=== PATIENT | female | born 1955 | race Caucasian/White ===

== ENCOUNTER → 2017-10-09 10:03 | Outpatient (CLI) | payer OTHER, SELFPAY ==
[2017-10-09 12:51] LABS: Absolute Lymphocyte Count 1.15 X10^3/ul (0.83-4.51); Basophil# 0.02 X10^3/uL; Basophil% 0.4 % (0-1); Eosinophil# 0.09 X10^3/uL; Eosinophils% 1.9 % (0-5); Hematocrit 38.5 % (37-47); Lymphocyte # 1.15 X10^3/ul (4.0); Lymphocyte % 24.6 % (19-41); Mean Corp Hgb Conc 33.8 g/gl (32-36); Mean Corpuscular Hgb 32.1 pg (27.0-32.0); Mean Corpuscular Volume 95.1 fL (81-99); Mean Platelet Vol. 10.9 fl (6.2-12.0); Monocyte# 0.46 X10^3/uL; Monocyte% 9.8 % (0-10); Neutrophil # 2.96 X10^3/uL (2.7-7.7); Neutrophil % 63.3 % (47-70); Platelet Count 263 K/mm3 (150-450); RBC Distribution Width CV 12.2 % (11.6-14.6); RBC Distribution Width SD 41.6 fl (35.1-43.9); Red Blood Count 4.05 M/mm3 (4.2-5.4); White Blood Count 4.7 K/mm3 (4.4-11.0)
[2017-10-09 12:56] LABS: POSITIVE COUNT NO; POSITIVE DIFFERENTIAL NO; POSITIVE MORPHOLOGY NO
[2017-10-09 13:03] LABS: ALB/GLOB Ratio 1.3 RATIO (0.9-2.4); AST(SGOT) 21 U/L (15-37); Alanine Aminotransfer ALT/SGPT 35 U/L (13-56); Albumin, Serum 4.1 g/dL (3.2-5.0); Alkaline Phosphatase 54 U/L (45-117); Anion Gap 6 (5-15); BUN 11 mg/dL (7-18); BUN/Creat Ratio 16.5 RATIO (10-20); Calcium,Total 9.3 mg/dL (8.5-10.1); Chloride 103 mmol/L (98-107); Creatinine, Serum 0.67 mg/dL (0.55-1.02); EST Glomerular Filtration Rate 95 mL/min (>60); Est Glom Filt Rate - Afr Amer 115 mL/min (>60); Globulin 3.2 g/dL (2.2-4.2); Glucose 77 mg/dL (74-106); Potassium 3.9 mmol/L (3.5-5.1); Protein, Total 7.3 g/dL (6.4-8.2); Sodium Level 140 mmol/L (136-145)
== END ==
PROVIDERS: Family Provider Family Medicine; PCP Family Medicine; Visit Provider Family Medicine
DX: Z00.00 Encounter for general adult medical examination without abnormal findings (principal)
CPT/HCPCS: 36415; 80053; 85025

== ENCOUNTER → 2018-06-10 08:21 | Outpatient (CLI) | payer OTHER, SELFPAY ==
--- NOTE | 2018-06-10 08:25 | BI_ITS ---
MAMMOGRAPHY - BILATERAL SCREENING REASON FOR EXAM: Female, 62 years old. Routine annual screening examination. PERTINENT HISTORY: Mother with breast cancer. TECHNIQUE: Digital bilateral breast narciso (3D mammographic acquisition) in the CC and MLO projections. 2-D mediolateral oblique (MLO) and craniocaudad (CC) views of both breasts were obtained. CAD: Full Field Digital Mammography with Computer Added Detection was performed. COMPARISON: Comparison is made with prior outside examination dated June 09, 2017. FINDINGS: Breast Composition: The breasts are extremely dense, which lowers the sensitivity of mammography. There are no dominant masses or suspicious calcifications. No other significant abnormalities are identified. There has been no significant change since the prior study. BI/SCREENING MAMM (CAD), BILAT IMPRESSION: Stable bilateral screening mammogram. Yearly follow-up mammogram recommended. (A) ASSESSMENT CATEGORY: BIRADS Category 1: Negative. A letter regarding these results will be sent to the patient by the facility within 30 days. Approximately 10% of breast cancers are not detected by mammography. A normal mammogram should not delay biopsy of a clinically suspicious abnormality. [id number] Electronically Signed: Karl Campoverde MD at 9:31 EDT Tel [phone], Service support ,
== END ==
PROVIDERS: Family Provider Family Medicine; PCP Family Medicine
DX: Z12.31 Encounter for screening mammogram for malignant neoplasm of breast (principal)
CPT/HCPCS: 77063; 77067

== ENCOUNTER → 2019-06-08 14:26 | Outpatient (CLI) | payer OTHER, SELFPAY ==
[2018-07-10 10:30] VITALS: BMI 19.5
--- NOTE | 2019-06-08 14:33 | BI_ITS ---
MAMMOGRAPHY - BILATERAL SCREENING REASON FOR EXAM: Female, 63 years old. Routine annual screening examination. PERTINENT HISTORY: Mother with breast cancer. TECHNIQUE: Digital bilateral breast lorie (3D mammographic acquisition) in the CC and MLO projections. 2-D mediolateral oblique (MLO) and craniocaudad (CC) views of both breasts were obtained. CAD: Full Field Digital Mammography with Computer Added Detection was performed. COMPARISON: Comparison is made with prior examination in June 10, 2018. FINDINGS: Breast Composition: The breasts are extremely dense, which lowers the sensitivity of mammography. There are no dominant masses or suspicious calcifications. No other significant abnormalities are identified. There has been no significant change since the prior study. BI/SCREEN MAMM (CAD) W/LORIE BILAT IMPRESSION: Stable bilateral screening mammogram. Yearly follow-up mammogram recommended. (A) ASSESSMENT CATEGORY: BIRADS Category 1: Negative. A letter regarding these results will be sent to the patient by the facility within 30 days. Approximately 10% of breast cancers are not detected by mammography. A normal mammogram should not delay biopsy of a clinically suspicious abnormality. [id number] Electronically Signed: Karl Campoverde, at 15:18 EDT , Service support ,
== END ==
PROVIDERS: Family Provider Family Medicine; PCP Family Medicine; Referring Provider Obstetrics & Gynecology; Visit Provider Obstetrics & Gynecology
DX: Z12.31 Encounter for screening mammogram for malignant neoplasm of breast (principal)
CPT/HCPCS: 77063; 77067

== ENCOUNTER → 2020-06-22 08:27 | Outpatient (CLI) | payer SELFPAY ==
[2018-07-10 10:30] VITALS: BMI 19.5
--- NOTE | 2020-06-22 08:33 | BI_ITS ---
MAMMOGRAPHY - BILATERAL SCREENING REASON FOR EXAM: Female, 64 years old. Routine annual screening examination. PERTINENT HISTORY: Mother with breast cancer. TECHNIQUE: Digital bilateral breast lorie (3D mammographic acquisition) in the CC and MLO projections. 2-D mediolateral oblique (MLO) and craniocaudad (CC) views of both breasts were obtained. CAD: Full Field Digital Mammography with Computer Added Detection was performed. COMPARISON: Comparison is made with prior study dated 06/08/2019 and 06/10/2018. FINDINGS: Breast Composition: The breasts are extremely dense, which lowers the sensitivity of mammography. There are no dominant masses or suspicious calcifications. No other significant abnormalities are identified. There has been no significant change since the prior study. BI/SCREEN MAMM (CAD) W/LORIE BILAT IMPRESSION: Stable bilateral screening mammogram. Yearly follow-up mammogram recommended. (A) ASSESSMENT CATEGORY: BIRADS Category 1: Negative. A letter regarding these results will be sent to the patient by the facility within 30 days. Approximately 10% of breast cancers are not detected by mammography. A normal mammogram should not delay biopsy of a clinically suspicious abnormality. [id number] Electronically Signed: Karl Campoverde, at 9:33 EST , Service support ,
== END ==
PROVIDERS: PCP Family Medicine; Referring Provider Obstetrics & Gynecology; Visit Provider Obstetrics & Gynecology
DX: Z12.31 Encounter for screening mammogram for malignant neoplasm of breast (principal); Z80.3 Family history of malignant neoplasm of breast
CPT/HCPCS: 77063; 77067

== ENCOUNTER → 2021-06-25 11:39 | Outpatient (CLI) | payer OTHER, SELFPAY ==
--- NOTE | 2021-06-25 11:43 | BI_ITS ---
MAMMOGRAPHY - BILATERAL SCREENING REASON FOR EXAM: Female, 65 years old. Routine annual screening examination. PERTINENT HISTORY: Mother with breast cancer. TECHNIQUE: Digital bilateral breast lorie (3D mammographic acquisition) in the CC and MLO projections. 2-D mediolateral oblique (MLO) and craniocaudad (CC) views of both breasts were obtained. CAD: Full Field Digital Mammography with Computer Added Detection was performed. COMPARISON: Comparison is made with prior examination dated 06/22/2020 and 06/08/2019. FINDINGS: Breast Composition: The breasts are extremely dense, which lowers the sensitivity of mammography. There are no dominant masses or suspicious calcifications. No other significant abnormalities are identified. There has been no significant change since the prior study. BI/SCRN MAMM (CAD)W/LORIE BILAT IMPRESSION: Stable bilateral screening mammogram. Yearly follow-up mammogram recommended. (A) ASSESSMENT CATEGORY: BIRADS Category 1: Negative. A letter regarding these results will be sent to the patient by the facility within 30 days. Approximately 10% of breast cancers are not detected by mammography. A normal mammogram should not delay biopsy of a clinically suspicious abnormality. [id number] Electronically Signed: Karl Campoverde MD at 12:28 EST , Service support ,
== END ==
PROVIDERS: PCP Family Medicine; Referring Provider Obstetrics & Gynecology; Visit Provider Obstetrics & Gynecology
DX: Z12.31 Encounter for screening mammogram for malignant neoplasm of breast (principal); Z80.3 Family history of malignant neoplasm of breast
CPT/HCPCS: 77063; 77067

== ENCOUNTER → 2022-06-28 | Outpatient (CLI) | payer MEDICARE, OTHER, SELFPAY ==
--- NOTE | 2022-06-28 08:35 | BI_ITS ---
MAMMOGRAPHY - BILATERAL SCREENING REASON FOR EXAM: Female, 66 years old. Routine annual screening examination. PERTINENT HISTORY: Mother with breast cancer. TECHNIQUE: Digital bilateral breast lorie (3D mammographic acquisition) in the CC and MLO projections. 2-D mediolateral oblique (MLO) and craniocaudad (CC) views of both breasts were obtained. CAD: Full Field Digital Mammography with Computer Added Detection was performed. COMPARISON: Comparison is made with prior study dated 06/25/2021 and 06/22/2020. FINDINGS: Breast Composition: The breasts are extremely dense, which lowers the sensitivity of mammography. There are no dominant masses or suspicious calcifications. No other significant abnormalities are identified. There has been no significant change since the prior study. BI/SCRN MAMM (CAD)W/LORIE BILAT IMPRESSION: Stable bilateral screening mammogram. Yearly follow-up mammogram recommended. (A) ASSESSMENT CATEGORY: BIRADS Category 1: Negative. A letter regarding these results will be sent to the patient by the facility within 30 days. Approximately 10% of breast cancers are not detected by mammography. A normal mammogram should not delay biopsy of a clinically suspicious abnormality. [id number] Electronically Signed: Karl Campoverde MD at 9:28 EST ,
== END | disposition home or self-care (01) ==
PROVIDERS: PCP Family Medicine; Referring Provider Obstetrics & Gynecology; Visit Provider Obstetrics & Gynecology
DX: Z12.31 Encounter for screening mammogram for malignant neoplasm of breast (principal); Z80.3 Family history of malignant neoplasm of breast
CPT/HCPCS: 77063; 77067

== ENCOUNTER → 2023-08-01 | Outpatient (CLI) | payer MEDICARE, OTHER, SELFPAY ==
--- NOTE | 2023-08-01 13:21 | BI_ITS ---
MAMMOGRAPHY - BILATERAL SCREENING REASON FOR EXAM: Female, 67 years old. Routine annual screening examination. PERTINENT HISTORY: Mother with breast cancer. TECHNIQUE: Digital bilateral breast lorie (3D mammographic acquisition) in the CC and MLO projections. 2-D mediolateral oblique (MLO) and craniocaudad (CC) views of both breasts were obtained. CAD: Full Field Digital Mammography with Computer Added Detection was performed. COMPARISON: Comparison is made with prior study June 28, 2022 and June 25, 2021. FINDINGS: Breast Composition: The breasts are extremely dense, which lowers the sensitivity of mammography. There are no dominant masses or suspicious calcifications. No other significant abnormalities are identified. There has been no significant change since the prior study. BI/SCRN MAMM (CAD)W/LORIE BILAT IMPRESSION: Stable bilateral screening mammogram. Yearly follow-up mammogram recommended. (A) ASSESSMENT CATEGORY: BIRADS Category 1: Negative. A letter regarding these results will be sent to the patient by the facility within 30 days. Approximately 10% of breast cancers are not detected by mammography. A normal mammogram should not delay biopsy of a clinically suspicious abnormality. [id number] Electronically Signed: Karl Campoverde MD at 14:38 EST ,
== END | disposition home or self-care (01) ==
PROVIDERS: PCP Family Medicine; Referring Provider Family Medicine; Visit Provider Family Medicine
DX: Z12.31 Encounter for screening mammogram for malignant neoplasm of breast (principal); Z80.3 Family history of malignant neoplasm of breast
CPT/HCPCS: 77063; 77067

== ENCOUNTER → 2024-08-03 | Outpatient (CLI) | payer MEDICARE, OTHER, SELFPAY ==
--- NOTE | 2024-08-03 10:38 | BI_ITS ---
MAMMOGRAPHY - BILATERAL SCREENING REASON FOR EXAM: Female, 68 years old. Routine annual screening examination. PERTINENT HISTORY: Mother with breast cancer. TECHNIQUE: Digital bilateral breast lorie (3D mammographic acquisition) in the CC and MLO projections. 2-D mediolateral oblique (MLO) and craniocaudad (CC) views of both breasts were obtained. CAD: Full Field Digital Mammography with Computer Added Detection was performed. COMPARISON: Comparison is made with prior study dated August 01, 2023. FINDINGS: Breast Composition: The breasts are extremely dense, which lowers the sensitivity of mammography. There are no dominant masses or suspicious calcifications. Stable bilateral fat containing axillary lymph nodes. No other significant abnormalities are identified. There has been no significant change since the prior study. BI/SCRN MAMM (CAD)W/LORIE BILAT IMPRESSION: Stable bilateral screening mammogram. Yearly follow-up mammogram recommended. (A) ASSESSMENT CATEGORY: BIRADS Category 2: Benign. A letter regarding these results will be sent to the patient by the facility within 30 days. Approximately 10% of breast cancers are not detected by mammography. A normal mammogram should not delay biopsy of a clinically suspicious abnormality. [id number] Electronically Signed: Karl Campoverde MD at 11:45 EST ,
== END | disposition home or self-care (01) ==
LOC: OPBI 10:26
PROVIDERS: PCP Family Medicine; Referring Provider Physician Assistant; Visit Provider Physician Assistant
DX: Z12.31 Encounter for screening mammogram for malignant neoplasm of breast (principal); Z80.3 Family history of malignant neoplasm of breast
CPT/HCPCS: 77063; 77067

== ENCOUNTER → 2025-08-17 | Outpatient (CLI) | payer MEDICARE, OTHER, SELFPAY ==
--- NOTE | 2025-08-17 07:55 | BI_ITS ---
EXAM: SCRN MAMM (CAD)W/LORIE BILAT DATE: 08/17/2025 CLINICAL HISTORY: F, Age 69 y/o , SCREENING TECHNIQUE: Procedure Code: [id number] Modality: MG Procedure: SCRN MAMM (CAD)W/LORIE BILAT COMPARISON: Prior exam(s) were compared. FINDINGS: TISSUE DENSITY: The breasts are heterogeneously dense, which may obscure small masses. Bilateral Breast Mammographic Findings: No significant masses, calcifications or other abnormalities are identified. BI/SCRN MAMM (CAD)W/LORIE BILAT IMPRESSION: No mammographic evidence of malignancy. OVERALL FINAL ASSESSMENT BI-RADS 1: NEGATIVE. RECOMMENDATION: Routine annual follow-up in 1 Year Additional Recommendation none A letter with findings and recommendations will be mailed to the patient. Reading Location: [id number]
--- OUTSIDE RECORDS SUMMARY | 2025-08-17 07:57 | XMS RPT_ITS | CCD ---
Author Organization [facility] Care Team Providers Care Clinical Research Associate Name Role Phone Damon Logan Primary Care Provider Damon Logan Primary Care Unavailable Jefry Pak Referring Unavailable Jefry Pak Attending Unavailable Damon Logan DO Primary Care Provider Unavailable Primary Care Provider UnavailShawna Cobian DO Primary Care Provider SHAWNA KENNEY Referring Unavailable SHAWNA KENNEY Attending Unavailable EDGAR MCNULTY Referring Unavailable EDGAR MCNULTY Attending Unavailable [facility] Primary Care Unavailable BENA, DAMON Primary Care Unavailable EDGAR MCNULTY Attending Unavailable CHERYL, SOFI Referring Unavailable PETRILLA, DAMON Primary Care Unavailable EDGAR MCNULTY Referring Unavailable SANTIAGO, NIKA Referring Unavailable PETRILLA, DAMON Primary Care Unavailable RADHA BOTELLO Attending Unavailable CATALINA SUGGS Attending Unavailable RADHA BOTELLO Referring Unavailable Allergies Allergy Classification Reported Allergen(s) Allergy Type Date of Onset Reaction(s) Facility Macrolides (antibiotic) (2 sources) Clarithromycin Drug Allergy 5 Other (See Comments) [facility] Clarithromycin; Translations: [CLARITHROMYCIN] Drug Allergy 5 Other (See Comments) [facility] Work Phone: (20 sources) Clarithromycin Allergy to substance 5 [facility] Medications Current Medications Medication Drug Class(es) Dates Sig (Normalized) Sig (Original) ALPRAZolam 0.5 mg oral tablet (18 sources) Benzodiazepine Start: 02-22-2025 take 1 tablet by mouth once daily as needed for sleep ALPRAZolam (Xanax) 0.5 MG tablet Indications: Insomnia, unspecified type , Anxiety Take 1 tablet (0.5 mg) by mouth Nightly as needed for sleep (use nightly as needed for sleep) for up to 15 doses. 15 tablet 02/22/2025 Active Start: 12-10-2023 End: 08-31-2024 take 1 tablet by mouth once daily as needed for sleep ALPRAZolam (Xanax) 0.5 MG tablet Indications: Insomnia, unspecified type , Anxiety Take 1 tablet (0.5 mg) by mouth Nightly as needed for sleep (use nightly as needed for sleep). 30 tablet 2 06/02/2024 08/31/2024 Active aspirin 325 mg delayed release oral tablet (2 sources) Platelet Aggregation Inhibitor, Nonsteroidal Anti-inflammatory Drug Start: 01-08-2021 aspirin 325 MG EC tablet Take 1 tablet by mouth 2 times daily Take 2 times a day with food for 30 days. This is for blood clot prevention. 60 tablet 0 01/08/2021 Active azithromycin 250 mg oral tablet (2 sources) Macrolide Antimicrobial Start: 07-10-2018 Azithromycin Active 0 PO .COMPLEX July 10, 2018 12:00am take 500 mg today (day 1), then 250 mg for 4 days (days 2-5) PO celecoxib 200 mg oral capsule (2 sources) Nonsteroidal Anti-inflammatory Drug Start: 01-08-2021 celecoxib (CELEBREX) 200 MG capsule Take 1 capsule by mouth 2 times daily Take 2 times a day as needed for pain. 60 capsule 1 01/08/2021 Active cholecalciferol 0.05 mg oral capsule (20 sources) Vitamin D take 1 capsule by mouth once daily cholecalciferol (Vitamin D-3) 50 MCG (2000 UT) capsule Take 2,000 Units by mouth daily. Active docusate sodium 50 mg oral capsule (2 sources) Start: 01-08-2021 take 2 capsules by mouth twice daily as needed for pain docusate sodium (COLACE) 50 MG capsule Take 2 capsules by mouth 2 times daily 2x daily as needed for constipation while on pain meds 60 capsule 0 01/08/2021 Active escitalopram 5 mg oral tablet (11 sources) Serotonin Reuptake Inhibitor Start: 06-02-2024 End: 08-31-2024 take 1 tablet by mouth once daily escitalopram (Lexapro) 5 MG tablet Indications: Anxiety Take 1 tablet (5 mg) by mouth daily. 30 tablet 2 06/02/2024 Active grape seed extract 100 mg oral capsule (3 sources) take 2 capsules by mouth once daily in the morning Grape Seed Extract 100 MG CAPS Take 200 mg by mouth every morning 0 Active Lecithin (4 sources) take 1 capsule by mouth once daily LECITHIN PO Take 1 capsule by mouth daily 1200MG 0 Active take 1 capsule by mouth once suyapa ly LECITHIN PO Take 1 capsule by mouth daily 0 Active magnesium citrate 58.2 mg/ml oral solution (13 sources) magnesium citrat e solution Take by mouth. Active 24 hr metoprolol succinate 25 mg extended release oral capsule (2 sources) beta-Adrenergic Salazar Start: 07-10-20 18 take 25 mg by mouth once daily Metoprolol Succinate Active 25 MG PO DAILY July 10, 2018 12:00am niacin 500 mg extended release oral capsule (3 sources) Nicotinic Acid take 1 capsule by mouth once daily niacin 500 MG extended release capsule Take 500 mg by mouth nightly 0 Active polyethylene glycol 3350 69056 mg powder for oral solution (2 sources) Osmotic Laxative Start: 01-09-20 21 take 1 dose by mouth once daily as needed for constipation polyethylene glycol (MIRALAX) 17 g packet Take 17 g by mouth daily as needed for Constipation Take one packet a day as needed for constipation 14 each 0 01/08/2021 Active Probiotic Product (PROBIOTIC ADVANCED) CAPS (1 source) take 1 capsule by mouth once daily Probiotic Product (PROBIOTIC ADVANCED) CAPS Take 1 capsule by mouth daily 0 Active soybean lecithin 1200 mg oral capsule (20 sources) take 1 capsule by mouth once daily Lecithin 1200 MG capsule Take 1,200 mg by mouth daily. Active Specialty Vitamins Products (HAIR NOURISHING SUPPLEMENT PO) (4 sources) take 1 tablet by mouth once daily Specialty Vitamins Products (HAIR NOURISHING SUPPLEMENT PO) Indications: viviscal Take 1 tablet by mouth daily Indications: viviscal VIVISCAL MARINE COMPLEX 0 Active take 1 tablet by mouth once janie y Specialty Vitamins Products (HAIR NOURISHING SUPPLEMENT PO) Indications: viviscal Take 1 tablet by mouth daily 0 Active Turmeric extract (20 sources) Turmeric 400 MG capsule Take by mouth. Active Turmeric 400 MG capsule Take by mouth. 0 Active Turmeric 400 MG CAPS Take by mouth 0 Active End: 01-01-2021 take 1 tablet by mouth once daily TURMERIC PO Take 1 tablet by mouth daily 0 01/01/2021 Discontinued (LIST CLEANUP) take 1 tablet by al th once daily TURMERIC PO Take 1 tablet by mouth daily 0 Active Completed/Discontinued Medications Medication Drug Class(es) Dates Sig (Normalized) Sig (Original) amoxicillin 500 mg oral capsule (8 sources) Penicillin-class Antibacterial Start: 11-21-2023 End: 12-10-2023 amoxicillin (Amoxil) 500 MG capsule Take 500 mg by mouth in the morning and 500 mg at noon and 500 mg before bedtime. 0 11/21/2023 12/10/2023 Discontinued (Therapy completed) Start: 11-21-2023 End: 11-21-2023 amoxicillin (Amoxil) 500 MG capsule Indications: Status post hip replacement Take 4 capsules (2,000 mg) by mouth Once for 1 dose. Take all 4 pills 1 hour before dental procedure 4 capsule 0 11/21/2023 11/21/2023 Active Start: 09-27-2022 End: 09-27-2022 amoxicillin (Amoxil) 500 MG capsule Indications: Status post hip replacement Take 4 capsules (2,000 mg) by mouth Once for 1 dose. Take all 4 pills 1 hour before dental procedure 4 capsule 0 09/27/2022 09/27/2022 benzonatate 100 mg oral capsule (2 sources) Non-narcotic Antitussive Start: 07-06-2018 End: 01-01-2021 benzonatate (TESSALON PERLES) 100 MG capsule 1-2 qid prn , no more than 6 a day 60 capsule 1 07/06/2018 01/01/2021 Discontinued (LIST CLEANUP) bifidobacterium animalis [id number] unt / lactobacillus acidophilus [id number] unt oral capsule (1 source) End: 01-01-2021 take 1 capsule by mouth once daily Probiotic Product (PROBIOTIC ADVANCED) CAPS Take 1 capsule by mouth daily 0 01/01/2021 Discontinued (LIST CLEANUP) chondroitin sulfates 400 mg / glucosamine sulfate 500 mg oral tablet (16 sources) End: 06-02-2024 take 1 tablet by mouth three times daily glucosamine-chond roitin 500-400 MG tablet Take 1 tablet by mouth 3 times daily. 06/02/2024 Discontinued (Med list cleanup) take 1 tablet by mouth once janie y Glucosamine-Chondroitin (GLUCOSAMINE CHONDR COMPLEX PO) Take 1 tablet by mouth daily 0 Active gadopiclenol (Vueway) injection 7.5 mL (2 sources) Start: 05-03-2025 End: 05-03-2025 take 7.5 mL intravenously once as needed 7.5 mL, IntraVENous, IMG once PRN, contrast, Starting on Fri05/03/25 at 0849, For 1 dose imipramine hydrochloride 25 mg oral tablet (2 sources) Tricyclic Antidepressant Start: 04-14-2020 End: 01-01-2021 take 1 tablet by mouth once daily imipramine (TOFRANIL) 25 MG tablet Take 1 tablet by mouth nightly 30 tablet 3 04/14/2020 01/01/2021 Discontinued (LIST CLEANUP) iopamidol (Isovue-370) 76 % injection 75 mL (2 sources) Start: 05-13-2025 End: 05-13-2025 take 75 mL intravenously once as needed 75 mL, IntraVENous, IMG once PRN, contrast, Starting on Fri05/13/25 at 0814, For 1 dose Psyllium (2 sources) End: 01-01-2021 Psyllium (METAMUCIL FIBER PO) Take 1 Package by mouth daily 0 01/01/2021 Discontinued (LIST CLEANUP) Psyllium (METAMU CIL FIBER PO) Take 1 Package by mouth daily 0 Active traZODone hydrochloride 50 mg oral tablet (5 sources) Serotonin Reuptake Inhibitor Start: 12-10-2023 End: 12-09-2024 take 1 tablet by mouth once daily as needed for sleep traZODone (Desyrel) 50 MG tablet Indications: Insomnia, unspecified type Take 1 tablet (50 mg) by mouth Nightly as needed for sleep. 30 tablet 2 12/10/2023 06/02/2024 Discontinued (Ineffective) Problems Active Problems Problem Classification Problem Date Documented Da te Episodic/Chronic Acute bronchitis (2 sources) Acute bronchitis; Translations: [Acute bronchitis, unspecified] 07-10-2018 Episodic Anxiety disorders (20 sources) Generalized anxiety disorder; Translations: [Generalized anxiety disorder] Onset: 04-03-2015 04-03-2015 Chronic Diverticulosis and diverticulitis (20 sources) Diverticulosis of colon; Translations: [Diverticulosis of large intestine without perforation or abscess without bleeding] Onset: 10-08-2017 10-08-2017 Chronic Diverticulosis and diverticulitis (1 source) Diverticulosis of colon; Translations: [Diverticular disease of colon] Onset: 10-08-2017 10-08-2017 Essential hypertension (20 sources) Essential hypertension; Translations: [Essential (primary) hypertension] Onset: 04-03-2015 04-03-2015 Chronic Osteoarthritis (20 sources) Arthritis of right hip; Translations: [Unilateral primary osteoarthritis, right hip] Onset: 04-03-2015 04-03-2015 Chronic Other acquired deformities (5 sources) Spondylolisthesis; Translations: [Spondylolisthesis, cervical region] 07-13-2024 Episodic Other and ill-defined cerebrovascular disease (4 sources) Intracranial aneurysm; Translations: [Cerebral aneurysm, nonruptured] 05-13-2025 Chronic Other and ill-defined cerebrovascular disease (3 sources) Cerebral aneurysm, nonruptured; Translations: [Cerebral aneurysm, nonruptured] Onset: 05-13-2025 Chronic Other circulatory disease (1 source) Elevated blood-pressure reading without diagnosis of hypertension; Translations: [Elevated blood-pressure reading, without diagnosis of hypertension] 12-10-2023 Episodic Other connective tissue disease (6 sources) History of repair of hip joint; Translations: [Presence of unspecified artificial hip joint] 09-27-2022 Chronic Other ear and sense organ disorders (5 sources) Sudden idiopathic hearing loss; Translations: [Sudden idiopathic hearing loss, right ear] Onset: 05-03-2025 05-03-2025 Episodic Other ear and sense organ disorders (5 sources) Abnormal auditory perception; Translations: [Other abnormal auditory perceptions, right ear] Onset: 05-03-2025 05-03-2025 Episodic Other ear and sense organ disorders (1 source) Sudden idiopathic hearing loss, right ear; Translations: [Sudden idiopathic hearing loss, right ear] Onset: 05-03-2025 Episodic Other ear and sense organ disorders (1 source) Other abnormal auditory perceptions, right ear; Translations: [Other abnormal auditory perceptions, right ear] Onset: 05-03-2025 Episodic Other ear and sense organ disorders (1 source) Sudden idiopathic hearing loss, bilateral; Translations: [Sudden idiopathic hearing loss, bilateral] Onset: 06-14-2025 Episodic Other gastrointestinal disorders (1 source) Malabsorption syndrome; Translations: [Other intestinal malabsorption] Chronic Other non-epithelial cancer of skin (1 source) Squamous cell carcinoma of foot; Translations: [SCC (squamous cell carcinoma), foot] 04-03-2015 Chronic Other non-traumatic joint disorders (1 source) Arthritis of right hip; Translations: [Arthritis of right hip] 04-03-2015 Other screening for suspected conditions (not mental disorders or infectious disease) (5 sources) Patient encounter status; Translations: [Encounter for screening mammogram for malignant neoplasm of breast] Onset: 09-08-2024 07-17-2023 Episodic Spondylosis; intervertebral disc disorders; other back problems (14 sources) Degeneration of cervical intervertebral disc; Translations: [Other cervical disc degeneration, unspecified cervical region] Onset: 08-13-2024 07-13-2024 Chronic Unclassified (1 source) New Patient Onset: 06-02-2025 Past or Other Problems Problem Classification Problem Date Documented Da te Episodic/Chronic Intestinal infection (2 sources) Gastrointestinal infection; Translations: [Infectious gastroenteritis and colitis, unspecified] Episodic Other acquired deformities (2 sources) Spondylolisthesis, cervical region; Translations: [Spondylolisthesis, cervical region] Onset: Episodic Other gastrointestinal disorders (2 sources) Functional diarrhea; Translations: [Functional diarrhea] Episodic Other gastrointestinal disorders (1 source) Diarrhea of presumed infectious origin; Translations: [Diarrhea, unspecified] Episodic Other gastrointestinal disorders (1 source) Diarrhea; Translations: [Diarrhea, unspecified] Episodic Other non-epithelial cancer of skin (20 sources) Squamous cell carcinoma of foot; Translations: [Squamous cell carcinoma of skin of unspecified lower limb, including hip] Onset: 5 04-03-2015 Episodic Residual codes; unclassified (20 sources) FH: Diabetes mellitus; Translations: [Family history of diabetes mellitus] Onset: 5 04-03-2015 Episodic Residual codes; unclassified (20 sources) Family history of breast cancer; Translations: [Family history of malignant neoplasm of breast] Onset: 5 04-03-2015 Episodic Residual codes; unclassified (4 sources) History of colonoscopy; Translations: [Other specified postprocedural states] Onset: 2 Resolved: 8 10-08-2017 Episodic Residual codes; unclassified (20 sources) Insomnia; Translations: [Insomnia, unspecified] Onset: 4 12-10-2023 Episodic Septicemia (except in labor) (1 source) Sepsis; Translations: [Sepsis, unspecified organism] Episodic Spondylosis; intervertebral disc disorders; other back problems (9 sources) Neck pain; Translations: [Cervicalgia] Onset: 4 05-21-2024 Episodic Results Test Name Value Interpretation Reference Range Facility [facility] 06-16-2025 [facility] Telephone (AKNEIL) MANUEL AYERS ([id number]) 1955 F Date Time Provider Department 06/16/25 JENNIFER DAI During your visit today, we recorded the following information about you: Jennifer Dai RN 06/16/2025 1:35 PM Signed Spoke to patient via phone regarding upcoming NIL DSA originally scheduled for 07/18/25. Per patient, date changed to 07/20/25 @1030am. Arrival time to preop is 930am. Instructions reviewed, and patient did verbalize back understanding. Patient instructed to call should any questions arise. Allergies As of Date: 06/16/2025 Noted Allergy Reaction CLARITHROMYCIN 04/01/2015 14 - Other: See Comments Comments: Other reaction(s): Other (See Comments), Other (See Comments) ABD cramps ABD cramps Date Reviewed: 06/14/2025 Reviewed by: Chani Pedroza MA - Fully Assessed Reason for Visit: Jira Administrator - Other [5020] Prescriptions as of 06/16/2025 - ALPRAZolam ER (XANAX XR) 0.5 mg 24 hr tablet Take 0.5 mg by mouth daily at bedtime. Take 1 tablet (0.5mg) by mouth nightly as needed for sleep (use nightly as needed for sleep) for up to 15 doses - Cholecalciferol, Vitamin D3, 50 mcg (2,000 unit) cap Take 2,000 Units by mouth once daily. - Lecithin 1,200 mg cap Take 1,200 mg by mouth once daily. - magnesium citrate solution - turmeric 400 mg cap Take 400 mg by mouth once daily. Problem List As Of Date: 06/16/2025 (None) Encounter Status:Closed by JENNIFER DAI on 06/16/25 Normal [facility] 36on 06-15-2025 36 Name of caller: Luiz wagner Contact phone number: [phone] Relationship to Patient: Self Provider: Juanjo Practice: Ortho Chief Complaint/Reason for Call: Pt caleld in stating she will be having a cerebral angiogram on 07/18. Pt states she had R JESSICA 01/04/21 and is asking if she would need any ABX before this procedure. Pt is asking for a return call. Please advise. Best time of day caller can be reached: Any Patient advised that office/PCP has 24-48 business hours to return their call: N/A Normal [facility] CNCOon 06-15-2025 CNCO Letter Text Normal [facility] CNOVon 06-14-2025 CNOV Office Visit (NSEAP) MANUEL AYERS ([id number]) 1955 F Date Time Provider Department 06/14/25 1:00 PM CATALINA SUGGS NSEAP During your visit today, we recorded the following information about you: Pulse Blood pressure Weight Height 78/minute 145/65 61.2 kg 1.664 m Catalina Suggs MD 06/19/2025 6:47 PM Signed Cerebrovascular Center: Cerebrovascular Neurosurgery [facility] End[facility] Surgical Neuroradiology New Visit Manuel Ayers [facility]#: [id number] Date of Service: 06/14/2025 Primary Care Provider: No primary care provider on file. The patient was referred by Radha Botello MD for opinion regarding unruptured cerebral aneurysm. I will provide a written report of my findings to the referring through letter, e-communication, or epic. Subjective Last Office Visit: n/a. Last Distance Health Visit: n/a. Chief Complaint: Unruptured aneurysm HPI: The patient is a 69-year-old female presenting for evaluation of an incidental 8???8???7 mm unruptured intracranial aneurysm. - Incidental finding on CTA in April, patient no known family history of brain aneurysms or CVA. - No history of HTN or current antihypertensive medication use. - Former smoker, last smoked in high school. - Denies current use of chronic medications. - Occasionally takes Xanax for sleep issues; last dose was a while ago. - Supplements include lecithin, turmeric, vitamin D3, and a hair supplement containing fish oil. - Engages in daily walking for an hour. - Plans to travel in June; concerned about the timing of the angiogram. - Inquires about potential risks and complications of the angiogram and treatment options. Hearing Loss: - Sudden hearing loss after exposure to a loud train whistle at a parade on March 11. - Describes ear as totally plugged up with significant hearing loss. - Initial evaluation by an ENT led to an MRI, which revealed the aneurysm. - Denies dizziness or vertigo associated with the hearing loss. Handedness: Right handed. Smoking: No Illicit drug use: No Personal HX of HTN: No Personal HX of kidney disease: No Family History of SAH, aneurysms, stroke, vascular malformations, other neurological diseases? No NEUS ENDOVASC ROS Ears/Nose/Mouth/Throat: (+) hearing loss, (+) ear fullness Gastrointestinal: (+) abdominal bloating Neurological: (-) dizziness Psychiatric: (+) insomnia There is no problem list on file for this patient. No past surgical history on file. Allergies: Clarithromycin Medications: Current Outpatient Medications Medication Sig ALPRAZolam ER (XANAX XR) 0.5 mg 24 hr tablet Take 0.5 mg by mouth daily at bedtime. Take 1 tablet (0.5mg) by mouth nightly as needed for sleep (use nightly as needed for sleep) for up to 15 doses Cholecalciferol, Vitamin D3, 50 mcg (2,000 unit) cap Take 2,000 Units by mouth once daily. Lecithin 1,200 mg cap Take 1,200 mg by mouth once daily. magnesium citrate solution turmeric 400 mg cap Take 400 mg by mouth once daily. No current facility-administered medications for this visit. SOCIAL HISTORY[1] Objective Patient Entered Questionnaires 06/12/2025 Health Status Impact by Stroke or CVD Impact Somewhat PROMIS/NeuroQoL Score Percentiles 06/12/2025 Physical Health Physical Function Percentile 76 Sleep Percentile 7 Fatigue Percentile 58 Pain Interference Percentile 84 06/12/2025 PROMIS SOCIAL ROLE SCORE Social Role Satisfaction Percentile 84 06/12/2025 Mental Health General Self-Efficacy Percentile 62 06/12/2025 PROMIS Global Health Scale Physical Health Percentile 88 Mental Health Percentile 63 Percentiles provide an indication of how a patient's score ranks in relation to the [place] general population. > 31st percentile is within normal limits or better * < 31st percentile is at least ? SD worse than population, which may be clinically relevant < 16th percentile is at least 1 SD worse than population and warrants attention Descriptive Summary for PROMIS Physical Function T-score = 57 (Percentile 76) No difficulty - Do strenuous activities such as backpacking, skiing, playing tennis, bicycling, or jogging. No difficulty - Do heavy work around the house like scrubbing floors, or lifting or moving heavy furniture. Depression Screenin06/12/2025 PHQ-9 Score 5 Self-Harm Response Not at all PHQ-9 Scores: PHQ-9 Self-Harm (Item 9) Response: 0 - 9 No to Mild depression 0 - Not at all 10 - 14 Moderate depression 1 - Several Days > 15 Severe depression 2 - More than half the days 3 - Nearly every day 06/12/2025 Sleep Apnea Probability Score Probability (%) 22 (Sleep study not recommended) PHYSICAL EXAMINATION BP 145/65 Pulse 78 Ht 166.4 cm (5' 5.5") Wt 61.2 kg (135 lb) BMI 22.12 kg/m? General: Well-developed, well-nourished, in no acute distress. HEENT: Normocephalic, (more content not included)... Normal [facility] [place] 06-14-2025 [facility] Telephone (NECVS8) ANDRIAMANUEL ([id number]) 1955 F Date Time Provider Department 06/14/25 CATALINA SUGGS NECVS8 During your visit today, we recorded the following information about you: Abundio Thomas 06/14/2025 2:02 PM Signed CV PHONE Name of caller : Manuel Relationship to patient : Self If not self Will need patient permission to release results or disclose health information with called documented in . Patient identified by Name and Date of . ( Manuel Tram Ayers, 1955). Yes Number to return call [phone] Reason for Call: Patient Question/Update: Patient calling to inform DR and nurse that she is available 07/18 for Angiogram. Thank you calling [facility]. You will receive a return call within 48 hours ( or 2 business days if close to the weekend). If you feel that this is an urgent issue and needs immediate attention, it is recommended that you contact your primary care provider office or proceed to your nearest Urgent Care Center of Emergency Room ED for evaluation/treatment. Shannan Montanez RN 06/15/2025 9:51 AM Signed Called pt, no answer, left message with call back number. Will send instructions via next day mail Hailee Junior 06/15/2025 1:06 PM Signed Abundio Thomas 06/15/2025 1:09 PM Signed Patient returning nurses call, please return call when free. Shannan Montanez RN 06/15/2025 1:34 PM Signed Spoke with pt, pt is rescheduling procedure date to 07/20. Allergies As of Date: 06/14/2025 Noted Allergy Reaction CLARITHROMYCIN 04/01/2015 14 - Other: See Comments Comments: Other reaction(s): Other (See Comments), Other (See Comments) ABD cramps ABD cramps Date Reviewed: 06/14/2025 Reviewed by: Chani Pedroza MA - Fully Assessed Reason for Visit: Patient Update [1234] Prescriptions as of 06/15/2025 - ALPRAZolam ER (XANAX XR) 0.5 mg 24 hr tablet Take 0.5 mg by mouth daily at bedtime. Take 1 tablet (0.5mg) by mouth nightly as needed for sleep (use nightly as needed for sleep) for up to 15 doses - Cholecalciferol, Vitamin D3, 50 mcg (2,000 unit) cap Take 2,000 Units by mouth once daily. - Lecithin 1,200 mg cap Take 1,200 mg by mouth once daily. - magnesium citrate solution - turmeric 400 mg cap Take 400 mg by mouth once daily. Problem List As Of Date: 06/14/2025 (None) Encounter Status:Closed by SHANNAN MONTANEZ on 06/15/[address] 06-03-2025 36 Name of caller: Luiz wagner Contact phone number: [phone] Relationship to Patient: Self Provider: Practice: [facility] Chief Complaint/Reason for Call: Pt is having many concerns as she was told that she followed up with wrong doctor to go over scans and needs to have a referral and schedule for Neurology . Pt is trying to go on a trip by car and is leaving June 18 but needs to know if she is allowed to travel as the appt is pushed out and needs to cancel to get any of the money back if she can't go please advise Best time of day caller can be reached: any Patient advised that office/PCP has 24-48 business hours to return their call: No Normal [facility] 06-02-2025 [facility] Office Visit (DALIA CC) MANUEL AYERS ([id number]) 1955 F Date Time Provider Department 06/02/25 1:30 PM RADHA BOTELLO During your visit today, we recorded the following information about you: Pulse Blood pressure Weight Height 89/minute 138/74 62.9 kg 1.664 m Radha Botello MD 06/02/2025 2:26 PM Signed Manuel Ayers is a 69 year old female presents for 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 She had her workup done at [place] including imaging. 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 angiographic images of the intracranial circulation. It was done after she had some hearing loss after being at a parade. She still feels as if her R ear is closed. We discussed that as this is intracranial, this would be more NIL/neurosurgery issue than vascular surgery. Consult placed. Questions answered as far as pertained to my scope. HISTORIES: PAST MEDICAL HISTORY Diagnosis Date Anxiety Diverticulosis Hypertension Insomnia, unspecified type History reviewed. No pertinent surgical history. SOCIAL HISTORY[1]MEDICATIONS: Current Outpatient Medications Medication Sig ALPRAZolam ER (XANAX XR) 0.5 mg 24 hr tablet Take 0.5 mg by mouth daily at bedtime. Take 1 tablet (0.5mg) by mouth nightly as needed for sleep (use nightly as needed for sleep) for up to 15 doses Cholecalciferol, Vitamin D3, 50 mcg (2,000 unit) cap Take 2,000 Units by mouth once daily. Lecithin 1,200 mg cap Take 1,200 mg by mouth once daily. magnesium citrate solution turmeric 400 mg cap Take 400 mg by mouth once daily. No current facility-administered medications for this visit. ALLERGIES:ALLERGIES Not on File REVIEW OF SYSTEMS: All other ROS: negative PHYSICAL EXAM: General appearance: Normal, healthy, well nourished, alert and cooperative individual, in no acute distress. Skin: No lesions, rashes or ulcerations; normal color and turgor. Pulmonary: No wheezing or rhonchi. Breathing unlabored on RA Upper Extremities: Normal exam of the upper extremities. No clubbing, cyanosis, or edema. Neuro: Awake, alert, and oriented., Gait normal. Sensation grossly intact., CN II-XII grossly intact. 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 [1] Social History Tobacco Use Smoking status: Former Current packs/day: 0.00 Types: Cigarettes Quit date: 1974 Years since quittin.8 Smokeless tobacco: Never Vaping Use Vaping status: Never Used Allergies As of Date: 06/02/2025 (Not on File) Date Reviewed: 06/02/2025 Reviewed by: Radha Botello MD - Fully Assessed Reason for Visit: New Patient [172] Consult [173] Cmt: Referral Dr. Kenney Aneurysm [496] Cmt: Left internal carotid aneursym Primary Visit Diagnosis:Aneurysm of internal carotid artery (HCC) [I67.1] Order(s):CONSULT TO NEUROLOGY [9019] Order #: [id number]: 1 FUTURE Prescriptions as of 06/02/2025 - ALPRAZolam ER (XANAX XR) 0.5 mg 24 hr tablet Take 0.5 mg by mouth daily at bedtime. Take 1 tablet (0.5mg) by mouth nightly as needed for sleep (use nightly as needed for sleep) for up to 15 doses - Cholecalciferol, Vitamin D3, 50 mcg (2,000 unit) cap Take 2,000 Units by mouth once daily. - Lecithin 1,200 mg cap Take 1,200 mg by mouth once daily. - magnesium citrate solution - turmeric 400 mg cap Take 400 mg by mouth once daily. Problem List As Of Date: 06/02/2025 (None) Disposition: Return if symptoms worsen or fail to improve. Follow-up and Disposition History for Encounter Date Provider Department Center 06/02/2025 [id number], [facility] Encounter Status:Closed by RADHA BOTELLO on 06/02/25 [facility] 06-02-2025 [facility] Telephone ([facility]) MANUEL AYERS ([id number]) 1955 F Date Time Provider Department 06/02/25 RADHA BOTELLO During your visit today, we recorded the following information about you: Luisana Millan 06/02/2025 2:34 PM Signed I called Dr. Longoria's office at [phone] and spoke to Iesha. She stated that the Neuro team would look at it and call the pt. Allergies As of Date: 06/02/2025 (Not on File) Date Reviewed: 06/02/2025 Reviewed by: Radha Botello MD - Fully Assessed Reason for Visit: Appointment [186] Prescriptions as of 06/02/2025 - ALPRAZolam ER (XANAX XR) 0.5 mg 24 hr tablet Take 0.5 mg by mouth daily at bedtime. Take 1 tablet (0.5mg) by mouth nightly as needed for sleep (use nightly as needed for sleep) for up to 15 doses - Cholecalciferol, Vitamin D3, 50 mcg (2,000 unit) cap Take 2,000 Units by mouth once daily. - Lecithin 1,200 mg cap Take 1,200 mg by mouth once daily. - magnesium citrate solution - turmeric 400 mg cap Take 400 mg by mouth once daily. Problem List As Of Date: 06/02/2025 (None) Encounter Status:Closed by LUISANA MILLAN on 06/02/25 [facility] [place] 05-19-2025 [facility] Telephone ([facility]) MANUEL AYERS ([id number]) 1955 F Date Time Provider Department 05/19/25 RADHA BOTELLO During your visit today, we recorded the following information about you: Regis Matthews 05/19/2025 3:39 PM Signed New pt referral from Dr Kenney ([phone]) to Dr Botello - internal carotid aneurysm - CTA 05/13/25, MRI Left VM for pt to call office to schedule Allergies As of Date: 05/19/2025 (Not on File) Date Reviewed: Never Reviewed Reason for Visit: Appointment [186] Cmt: appt Problem List As Of Date: 05/19/2025 (None) Encounter Status:Closed by REGIS MATTHEWS on 05/19/25 [facility] 36on 05-18-2025 36 Referral and records faxed [facility] 36 Forward to [facility] to follow up [facility] 36 Name of caller: Norman hitchcock Contact phone number: [phone] [facility] Referral Department Provider: Dr. Kenney Practice: [facility] Chief Complaint/Reason for Call: Nancy called in requesting vascular referral and imaging results to be faxed to Dr. Radha George office. . Please Advise Best time of day caller can be reached: any Patient advised that office/PCP has 24-48 business hours to return their call: No Normal [facility] CNPNon 05-18-2025 CNPN Telephone ([facility]) MANUEL AYERS ([id number]) 1955 F Date Time Provider Department 05/18/25 RADHA BOTELLO During your visit today, we recorded the following information about you: Regis Matthews 05/18/2025 3:59 PM Signed New pt referral from Dr Kenney ([phone]) - internal carotid aneurysm - CTA 05/13/25, MRI Received fax referral - requested images from [facility] Allergies As of Date: 05/18/2025 (Not on File) Date Reviewed: Never Reviewed Reason for Visit: Appointment [186] Cmt: appt Problem List As Of Date: 05/18/2025 (None) Encounter Status:Closed by REGIS MATTHEWS on 05/18/25 [facility] 36on 05-17-2025 36 Alem Eb, [facility] [address] [place] [address] Brenda Davenport [facility] [address] [place] [address] [facility] [address] [address] Aleks Purdy MD [facility] [address] [place] [address] Radha Botello MD [facility] [address] [place] [address] [facility] 36 Do we have someone w ith [facility] for vascular? Normal [facility] CT HEAD ANGIO W AND WO IV CO NTRASTon 05-17-2025 CT HEAD ANGIO W AND WO IV CONTRAST Patient Name[facility]UEL [facility] 1955 [id number] Exam Date/Time: 05/13/2025 08:14 Procedure: CT HEAD ANGIO W AND WO IV CONTRAST Ordering Provider: KENNEY CHRISTINA Reason For Exam: ICA aneurysm CTA BRAIN WITH CONTRAST CT BRAIN WITHOUT CONTRAST CLINICAL INDICATION: ICA aneurysm Noncontrast axial CT images of the brain were performed. Subsequently, following the bolus administration of intravenous contrast, CT angiographic images of the intracranial circulation were obtained. Dose reduction was employed with automated exposure control. Images were reformatted into multiple three dimensional and surface shaded reconstructions by myself at a separate workstation. COMPARISON: MRI brain dated 05/03/2025 FINDINGS: Noncontrast axial CT images of the brain demonstrate the ventricles, sulci, and cisterns to be normal in size and configuration for the patient's age. No high attenuation material is seen to suggest intracranial hemorrhage. There is no definite acute cortical infarction. No midline shift or mass effect is seen. The visualized portion of the paranasal sinuses and mastoid air cells appear clear. CT angiographic study of the brain demonstrates patent flow in the right and left internal carotid arteries. The carotid siphons are widely patent, with no atherosclerotic changes nor evidence of hemodynamically significant stenosis. There is a saccular aneurysm measuring 8 x 8 x 7 mm arising from the inferior aspect of the ophthalmic segment of the left ICA distal to the takeoff of the ophthalmic artery. There is filling of the right and left anterior, middle, and posterior cerebral circulation vessels. There are no arterial cutoffs. There is no significant intracranial stenosis. The vertebral arteries are patent. The vertebrobasilar circulation is widely patent, with no atherosclerotic changes or significant stenosis. The basilar artery is widely patent. The vertebrobasilar branch vessels are all patent, with no evidence of critical stenosis. There is no evidence of aneurysm or vascular malformation in the posterior circulation vessels. 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 angiographic images of the intracranial circulation. Noncontrast CT images of the brain are normal. Report Dictated on Electronically Signed By: Romel Hopson MD Electronically Signed Date/Time: 05/17/2025 9:26 AM EDT Bilat hearing loss and follow up to spot seen on recent mri Normal [facility] 36on 05-10-2025 36 Yes, she needs a CTA for possible aneurysm. Ordered. [facility] 36 Pt stopped by asking about the additional testing that Dr. Crawford wanted us to order for the patient. She just wanted to make sure it didn't slip through the cracks since Petrilla is out. (I believe I left it on your desk) Please notify pt at . Normal [facility] 36on 02-22-2025 36 Pt scheduled next available 07/13/25. Normal [facility] 36 Recent Visits Date Type Provider Dept 06/02/24 Office Visit Jefry Pak PA-C [facility] Showing recent visits within past 365 days and meeting all other requirements Future Appointments No visits were found meeting these conditions. Showing future appointments within next 90 days and meeting all other requirements Requested Prescriptions Pending Prescriptions Disp Refills ALPRAZolam (Xanax) 0.5 MG tablet 30 tablet 2 Sig: Take 1 tablet (0.5 mg) by mouth Nightly as needed for sleep (use nightly as needed for sleep). Provider: Jefry Pak PA-C Verified pharmacy: yes Verified day(s) supplied: yes Verified refill(s) needed (previous prescription showing no refills in chart): Yes Have you received any controlled medications from any other provider? No Overdue for visit: No If yes - patient scheduled? No Most recent labs completed in chart? N/A [facility] 36on 08-12-2024 36 MCM sent [facility] 36 MRI ordered. No prio r auth needed as patient has Medicare. Normal [facility] SCRN MAMM (CAD)W/LORIE BILATo n 08-03-2024 SCRN MAMM (CAD)W/LORIE BILAT [facility] Imaging Services [address] [place] [id number] SCRN MAMM (CAD)W/LORIE BILAT MR#: [id number] Acct: [id number] Name: MANUEL AYERS Rep #: [id number] : 1955 F 68 From: Karl wood MD PCP: Dr. Damon Logan DO Status: [facility] Study: SCRN MAMM (CAD)W/LORIE BILAT Date of Exam: 07/18 03/10 Exam# [id number] Ordering Dr: Jefry Pak [id number] MAMMOGRAPHY - BILATERAL SCREENING REASON FOR EXAM: Female, 68 years old. Routine annual screening examination. PERTINENT HISTORY: Mother with breast cancer. TECHNIQUE: Digital bilateral breast lorie (3D mammographic acquisition) in the CC and MLO projections. 2-D mediolateral oblique (MLO) and craniocaudad (CC) views of both breasts were obtained. CAD: Full Field Digital Mammography with Computer Added Detection was performed. COMPARISON: Comparison is made with prior study dated August 01, 2023. FINDINGS: Breast Composition: The breasts are extremely dense, which lowers the sensitivity of mammography. There are no dominant masses or suspicious calcifications. Stable bilateral fat containing axillary lymph nodes. No other significant abnormalities are identified. There has been no significant change since the prior study. BI/SCRN MAMM (CAD)W/LORIE BILAT IMPRESSION: Stable bilateral screening mammogram. Yearly follow-up mammogram recommended. (A) ASSESSMENT CATEGORY: BIRADS Category 2: Benign. A letter regarding these results will be sent to the patient by the facility within 30 days. Approximately 10% of breast cancers are not detected by mammography. A normal mammogram should not delay biopsy of a clinically suspicious abnormality. [id number] Electronically Signed: Karl Campoverde MD at 11:45 EST , CC: Dr. Damon Logan, DO; SALEEM Michael Celery Stripper: Signed [facility] Office Visiton 07-13-2024 Follow-up visit [id number] Joel Ayers 1955 F Date Provider Department Center 07/13/2024 [id number] OR None Family History Problem Relation Age of Onset Other Sister Comments: carotid ds, Heart disease Brother Comments: 2016, age 69, COPD, DM and Cancer Mother Comments: 82 yrs, met Aditi sparks [place] in early 40's Cancer Father Comments: pancreatic CA, DM late 70s No Known Problems Sister Family Status - Relation Status Age at Sister Alive Brother Mother Father la* Sister Alive Level of Service:[id number] [place] OFFICE/OUTPATIENT NEW LOW MDM 30 MINUTES Reason for Visit and Comments: New Patient [542] [facility] Progress Noteon 07-13-2024 Progress Note [facility] [place] [address] [facility] [address] [facility] [address] Dept: [phone] Dept Manuel Ayers 1955 [id number] 07/13/2024 Problem List: Axial neck pain Cervical degenerative disc disease Cervical spondylosis Spondylolisthesis C4-C5 (M54.2) Neck pain on left side (M50.30) DDD (degenerative disc disease), cervical (M47.812) Cervical spondylosis (M43.12) Spondylolisthesis of cervical region Chief Complaint Patient presents with New Patient HPI: Manuel is a 68 y.o. female who is here today for evaluation of her cervical spine. Manuel is referred by Sofi Luna APRN - * Current symptoms: Pain is located in the left neck with radiation to base of the head . Numbness tingling: yes - left arm- if she lays on right side (has only happened last night) Weakness: denies Symptoms are moderate to severely affecting their quality of life. Inciting Event/Trauma: No specific cause Duration of Symptoms: 4 month(s) Associated neurologic complaints/Red flags: Gait/balance difficulty: denies Use of ambulatory aid?: no device Able to walk a city block: Yes Bowel/bladder incontinence: denies Urinary retention: No Saddle anesthesia: No Fine motor task difficulty/dropping things/handwriting changes: denies History of cancer: Yes -squamous on foot Aggravating factors: Cervical ROM- turning to the right With mouth open -certain positions difficulty turning Alleviating Factors: nothing Previous Treatment: PT: No NSAIDS: n/a Injections: No Opioid medications: n/a Muscle relaxers: n/a Oral steroids: n/a Nerve medications (gabapentin/Lyrica): n/a Pain management: No Chiropractor: No Previous spine surgery: No History of DVT/PE or hypercoagulable state (including history of relative): No Blood thinning medications: Work Status: Retired Is this a work related injury? No Review of Systems Tobacco Use: Medium Risk (06/02/2024) Patient History Smoking Tobacco Use: Former Smokeless Tobacco Use: Never Passive Exposure: Not on file No results found for: HGBA1C Allergies Allergen Reactions Clarithromycin Other reaction(s): Other (See Comments), Other (See Comments) ABD cramps Current Outpatient Medications Medication Sig Dispense Refill ALPRAZolam (Xanax) 0.5 MG tablet Take 1 tablet (0.5 mg) by mouth Nightly as needed for sleep (use nightly as needed for sleep). 30 tablet 2 cholecalciferol (Vitamin D-3) 50 MCG (2000 UT) capsule Take 2,000 Units by mouth daily. Lecithin 1200 MG capsule Take 1,200 mg by mouth daily. magnesium citrate solution Take by mouth. Turmeric 400 MG capsule Take by mouth. escitalopram (Lexapro) 5 MG tablet Take 1 tablet (5 mg) by mouth daily. 30 tablet 2 No current facility-administered medications for this visit. 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 Frederick COVID 09/2023 Diverticulosis 2017 mild per C scope Essential hypertension 2010 Family history of diabetes mellitus father Family history of malignant neoplasm of breast mother age 40 Family history of other specified malignant neoplasm Mother- past eval [facility] [place] Former smoker Generalized anxiety disorder 2015 beta salazar rx in past H/O colonoscopy 09/2021 Noy- IBS- hemorrhoids-/ Maurice- mod divert ds due 2031 Menopause [address] Frederick SCC (squamous cell carcinoma), foot 2005 L Heel- yearly eval per Dr. Huertas Past Surgical History: Procedure Laterality Date APPENDECTOMY 1967 COLONOSCOPY 09/2021 Dr. Richards- int hem, mod divert ds- due [address] Villafuerte COLONOSCOPY 2012 Dr. Ruiz ENDOMETRIAL ABLATION 2009 [facility] TOTAL HIP ARTHROPLASTY Right 12/2020 [place] Social History Socioeconomic History Marital status: Spouse name: Not on file Number of children: Not on file Years of education: Not on file Highest education level: Not on file Occupational History Not on file Tobacco Use Smoking status: Former Current packs/day: 0.00 Average packs/day: 0.3 packs/day for 1 year (0.3 ttl pk-yrs) Types: Cigarettes Start date: 08/18/1973 Quit date: 08/18/1974 Years since quittin.9 Smokeless tobacco: Never Tobacco comments: Quit smoking: QUIT IN HIGH SCHOOL Vaping Use Vaping status: Never Used Substance and Sexual Activity Alcohol use: Yes Alcohol/week: 0.0 standard drinks of alcohol Drug use: No Sexual activity: Not Currently Other Topics Concern Not on file Social History Narrative to [place], no children. 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 Normal [facility] XR CERVICAL SPINE COMPLETE 4 -5 VIEWSon 07-13-2024 XR CERVICAL SPINE COMPLETE 4-5 VIEWS There is no carotid artery calcifications noted. No abnormal pre-vertebral swelling. No obvious fracture. Anterolisthesis noted at C4-C5. No congenital stenosis. Maintenance of normal cervical lordosis noted. Mild to moderate multi-level degenerative disc disease noted. There are mild spondylitic changes and facet arthropathy noted. [facility] 36on 07-07-2024 36 Order faxed to [facility] 36 Name of caller: Luiz wagner Contact phone number: [phone] Relationship to Patient: patient Provider: Dr. Logan Practice: [facility] Chief Complaint/Reason for Call: Patient requesting for her mammogram order to [facility]. Patient did not have fax number. Patient also states she was supposed to get a refund of 259.79 for lab tests that were billed incorrectly. States state patrol officer was supposed to be taking care of and has not heard anything back yet. Please advise. Best time of day caller can be reached: any Patient advised that office/PCP has 24-48 business hours to return their call: Yes [facility] CR Hip w/ Pelvis 4+ Views [facility] 07-05-2021 CR Hip w/ Pelvis 4+ Views Right Patient Name: MANUEL AYERS Diagnostic Radiology ACCESSION EXAM DATE/TIME PROCEDURE ORDERING PROVIDER [id number] 07/05/2021 09:12 EST CR Hip w/ Pelvis 4+ MD JUANJO, MAL Views Right n IZABELLA CPT code 07575 Reason For Exam (CR Hip w/ Pelvis 4+ Views Right n) M16.11 STATUS POST TOTAL HIP REPLACEMENT OF RIGHT HIP Report Examination: Right hip Clinical Indication: Pain. Post hip replacement. Comparison: February 08, 2021 Findings: Right hip: AP view of the pelvis along with AP, crosstable lateral, and frog-leg lateral views of the right hip are provided. The patient is status post total right hip arthroplasty. No evidence of periprosthetic complication including lucency to just suggest loosening, subsidence, or periprosthetic fracture. Left hip and pelvis: No fracture, diastases/dislocation or osseous necrosis. Intact sacroiliac joints without evidence of erosion or widening. Normal osseous mineralization. Impression: Stable/satisfactory appearance of the right hip arthroplasty. Report Dictated on Final Dictating Physician: MD MANSFIELD JASON Signed Date and Time: 07/06/2021 8:44 am Signed by: MD MANSFIELD JASON Transcribed Date and Time: 07/06/2021 8:45 Normal [facility] CR Hip w/ Pelvis 4+ Views [facility] 02-08-2021 CR Hip w/ Pelvis 4+ Views Right Patient Name: MANUEL AYERS Diagnostic Radiology ACCESSION EXAM DATE/TIME PROCEDURE ORDERING PROVIDER [id number] 02/08/2021 09:11 EDT CR Hip w/ Pelvis 4+ [id number] -[facility] Views Right n CPT code 28885 Reason For Exam (CR Hip w/ Pelvis 4+ Views Right n) Pain Report RIGHT HIP CLINICAL INDICATION: Right hip pain A weightbearing AP view of the pelvis followed by AP, frog-leg, and crosstable lateral views of the right hip were obtained. COMPARISON: 01/08/2021 FINDINGS: A right total hip arthroplasty is present. No fracture, dislocation, or loosening of the arthroplasty is identified. There is no fracture of the bony pelvis. The sacroiliac joints appear grossly normal. No lytic or blastic lesions are seen. The left hip joint space is relatively well-preserved. IMPRESSION: Normal appearance of the patient's right total hip arthroplasty. Report Dictated on Final Dictating Physician: MD HOPSON JONATHAN R Signed Date and Time: 02/08/2021 11:49 am Signed by: MD HOPSON JONATHAN R Transcribed Date and Time: 02/08/2021 11:50 Normal [facility] XR HIP RIGHT MIN 4VW W PELVI SOrdered By: Sofi Luna on 02-08-2021 Patient Name: MANUEL SCHRADER Diagnostic Radiology ACCESSION EXAM DATE/TIME PROCEDURE ORDERING PROVIDER [id number] 02/08/2021 09:11 EDT CR Hip w/ Pelvis 4+ [id number] -CHERYL, SOFI Views Right n CPT code 27175 Reason For Exam (CR Hip w/ Pelvis 4+ Views Right n) Pain Report RIGHT HIP CLINICAL INDICATION: Right hip pain A weightbearing AP view of the pelvis followed by AP, frog-leg, and crosstable lateral views of the right hip were obtained. COMPARISON: 01/08/2021 FINDINGS: A right total hip arthroplasty is present. No fracture, dislocation, or loosening of the arthroplasty is identified. There is no fracture of the bony pelvis. The sacroiliac joints appear grossly normal. No lytic or blastic lesions are seen. The left hip joint space is relatively well-preserved. IMPRESSION: Normal appearance of the patient's right total hip arthroplasty. Report Dictated on --- Final --- Dictating Physician: MD HOPSON JONATHAN R Signed Date and Time: 02/08/2021 11:49 am Signed by: MD HOPSON JONATHAN R Transcribed Date and Time: 02/08/2021 11:50 [facility] Work Phone: [facility] Incoming Radiology Results From [facility] - 02/08/2021 11:50 AM EDT Patient Name: MANUEL AYERS Diagnostic Radiology ACCESSION EXAM DATE/TIME PROCEDURE ORDERING PROVIDER [id number] 02/08/2021 09:11 EDT CR Hip w/ Pelvis 4+ [id number] -JUAN R LUNAX Views Right n CPT code 40635 Reason For Exam (CR Hip w/ Pelvis 4+ Views Right n) Pain Report RIGHT HIP CLINICAL INDICATION: Right hip pain A weightbearing AP view of the pelvis followed by AP, frog-leg, and crosstable lateral views of the right hip were obtained. COMPARISON: 01/08/2021 FINDINGS: A right total hip arthroplasty is present. No fracture, dislocation, or loosening of the arthroplasty is identified. There is no fracture of the bony pelvis. The sacroiliac joints appear grossly normal. No lytic or blastic lesions are seen. The left hip joint space is relatively well-preserved. IMPRESSION: Normal appearance of the patient's right total hip arthroplasty. Report Dictated on --- Final --- Dictating Physician: MD HOPSON JONATHAN R Signed Date and Time: 02/08/2021 11:49 am Signed by: MD HOPSON JONATHAN R Transcribed Date and Time: 02/08/2021 11:50 [facility] Work Phone: [facility] Work Phone: Basic Metabolic Panelon 05-2 Calcium [Mass/Vol] 9.3 mg/dL Normal 8.4-10.4 [facility] Comment on above: Performed By: #### H GHCT BMP3 #### [facility] [address] [place] [address] Glucose [Mass/Vol] 140 mg/dL High 70-100 [facility] Comment on above: Performed By: #### H GHCT, BMP3 #### [facility] [address] [place] [address] Anion gap [Moles/Vol] 3 mmol/L Normal 3-13 [facility] Comment on above: Performed By: #### H GHCT, BMP3 #### [facility] [address] [place] [address] CO2 [Moles/Vol] 24 mmol/L Normal 22-30 [facility] Comment on above: Performed By: #### H GHCT, BMP3 #### [facility] [address] [place] [address] Creatinine [Mass/Vol] 0.66 mg/dL Normal 0.52-1.25 [facility] Comment on above: Performed By: #### H GHCT, BMP3 #### [place] [facility] [address] [place] [address] eGFR OTHER > 90.0 Normal >60 [facility] Comment on above: Result Comment: KDIG O guidelines provide the following GFR categories: Stage GFR(ml/min/1.73 m2) Terms G1 >=90 Normal or high G2 60-89 Mildly decreased* G3a 45-59 Mildly to moderately decreased G3b 30-44 Moderately to severely decreased G4 15-29 Severely decreased G5 <15 Kidney failure *Relative to young adult level. In the absence of evidence of kidney damage, neither GFR category G1 nor G2 fulfill the criteria for CKD. The CKD-EPI equation is validated in individuals 18 years of age and older. Currently the best equation for estimating glomerular filtration rate (GFR) from serum creatinine in children is the Bedside Garcia equation. It is less accurate in patients with extremes of muscle mass, restriction of dietary protein, ingestion of creatine, extra-renal metabolism of creatinine, or treatment with medications that affect renal tubular creatinine secretion. Performed By: #### H GHCT, BMP3 #### [place] [facility] [address] [place] [address] GFR/1.73 sq M.predicted among blacks MDRD (S/P/Bld) [Vol rate/Area] mL/min/{1.73_m2} Normal >60 [facility] Comment on above: Performed By: #### H GHCT, BMP3 #### [facility] [facility] [address] [place] [address] Urea nitrogen [Mass/Vol] 13 mg/dL Normal 7-20 [facility] Comment on above: Performed By: #### H GHCT, BMP3 #### [place] [facility] [address] [place] [address] Chloride [Moles/Vol] 105 mmol/L Normal 98-107 [facility] Comment on above: Performed By: #### H GHCT, BMP3 #### [place] [facility] [address] [place] [address] Potassium [Moles/Vol] 4.5 mmol/L Normal 3.5-5.1 [facility] Comment on above: Performed By: #### H GHCT, BMP3 #### [facility] [address] [place] [address] Sodium [Moles/Vol] 133 mmol/L Low 135-145 [facility] Comment on above: Performed By: #### H GHCT, BMP3 #### [facility] [address] [place] [address] Hemoglobin AND Hematocriton 01-09-2021 Hematocrit (Bld) [Volume fraction] 26.3 % Low 35.0-47.0 [facility] Comment on above: Performed By: #### H GHCT, BMP3 #### [facility] [address] [place] [address] Hemoglobin (Bld) [Mass/Vol] 9.2 g/dL Low 11.7-16.0 [facility] Comment on above: Performed By: #### H GHCT, BMP3 #### [facility] [address] [place] [address] CR Hip w/ Pelvis 1 [facility] 01-08-2021 CR Hip w/ Pelvis 1 View Right Patient Name: MANUEL AYERS Diagnostic Radiology ACCESSION EXAM DATE/TIME PROCEDURE ORDERING PROVIDER [id number] 01/08/2021 14:00 EDT CR Hip w/ Pelvis 1 View ALESSANDRO BETANCOURT NICHOLAS A Right n CPT code 36873 Reason For Exam (CR Hip w/ Pelvis 1 View Right n) s/p JESSICA Report CLINICAL INDICATION: Status post right total hip arthroplasty. TECHNIQUE: AP view the pelvis and right hip COMPARISON: 11/23/2020 FINDINGS/IMPRESSION: Right total hip arthroplasty prosthesis appears well seated without evidence of complication. Left hip appears intact as does the visualized bony pelvis. Expected postsurgical changes in the soft tissues overlying the right hip and right thigh. Report Dictated on Final Dictating Physician: MD DUGGAN VLADIMIR Signed Date and Time: 01/08/2021 4:09 pm Signed by: MD DUGGAN VLADIMIR Transcribed Date and Time: 01/08/2021 4:10 Normal [facility] Op Noteon 01-08-2021 Op Note [facility] [address] [facility] [address] Dept: [phone] Loc: [phone] Operative Report Patient Name: Manuel Ayers Date of : 1955 Date of Surgery: 01/08/2021 Pre-operative diagnosis: Right Hip degenerative joint disease Post-operative diagnosis: Same Procedure(s): right total hip arthroplasty Surgeon: Mal Geiger M.D. Substation Technician(s): charlette [email or web address], annemarie monge, cheryl proposal director Anesthesia: Spinal EBL: 100 IVF: Crystalloid Medications: Two grams of Cefazolin were given., 1 gram Tranexamic acid prior to incision and 1gram Tranexamic acid at closure, periarticular injection includincc 0.5% ropivacaine, epinephrine 1mg/ml 0.25ml, morphine 10mg, ketorlac 30mg, 30cc 0.9%NS Complications: None Intraop findings: severe degenerative joint disease Implants: Depuy Corail KLA stem size 11, Depuy [place] sector cup size 50, Depuy Altrx polyethylene liner 0 offest, with a biolox delta ceramic ball size 32 mm+ 5, 6.5x 30mm, 25mm Clinical History/Indication for Surgery This is a 65 y.o.-year-old patient with a long history of severe right hip pain secondary to degenerative joint disease. After review of the appropriate imaging studies, a detailed physical examination and history, it was recommended that the patient undergo right total hip arthroplasty as the patient had failed conservative management. The risks and benefits of hip arthroplasty have been discussed with the patient which include, but are not limited to, infections (including severe sequelae), potential component failure, fracture, DVT, pulmonary embolus, nerve palsy, dislocation, leg length inequality, persistent pain, wound healing complications, transfusions and . Operative Procedure: Prior to initiation of the operative procedure a surgical time-out was taken and the patient's name, medical record, number, [id number], and operative side was verified with the surgical consent form. Additionally it was verified that the appropriate john-operative antibiotic administration was completed, as well as that radiographs were available and the correct operative instrumentation and implants were available. After routine preparation and draping of the patient in the total joint operating room, a direct anterior approach was made to the right hip joint. The skin and subcutaneous tissues were incised. Electrocautery was utilized to maintain hemostasis along the skin edges. The subcutaneous fat was bluntly dissected. Subsequently the tensor fascia dale muscle was visualized and the medial and lateral borders identified. The medial border was identified by the fat strip that lies just medial to the muscle. The tip of the knife blade was used to gently incise the TFL fascia at the junction of the medial third and middle third of the TFL muscle belly. Care was taken to ensure that the musculature was not damaged at the area of the fascial incision. Finger dissection was used to locate the anterior femoral neck. A blunt marion retractor was then placed in the split at the level of the piriformis fossa. Subsequently the plane between the TFL and fascia was expanded distally to the inferior aspect of the wound. A sharp marion retractor was placed at the level of the vastus ridge retracting the mid aspect of the TFL. The lateral circumflex vessels were then visualized and cauterized. The interval between the rectus and the anterior hip capsule at the level of the inferior neck was completed and a blunt marion retractor placed. Subsequently the interval between the anterior capsule and the rectus was developed with electrocautery and completed with careful blunt dissection with a kunz elevator. The anterior capsule was split in a ?T? formation from the superolateral neck to the inferomedial neck and a capsulectomy completed. The saddle of the proximal femur was identified. The electrocautery was used to nika the sites of the femoral neck cut. A double osteotomy was completed to remove a wafer of bone, following which a power corkscrew was inserting into the remaining femoral head to extract it from the acetabulum. Then, a blunt marion was placed into the teardrop and the sharp marion placed under the posterior acetabular wall. The acetabular labrum was excised with a linda and electrocautery. An osteotome was utilized to remove the inferior and medial osteophytes. The acetabulum was subsequently reamed and shaped to accept a size 50mm acetabular shell. The shell was impacted into place with excellent stability.The position was confirmed under fluoroscopy. Two screws were placed in the posterior superior quadrant. A 32mm 0-degree liner was inserted into the shell. The medial and posterior retractors were then removed and the leg brought into adduction, external rotation. The pointed marion retractor was placed again at the vastus ridge. The superola (more content not included)... Normal [facility] CBCOrdered By: Mal eli on 01-01-2021 Hematocrit (Bld) [Volume fraction] 37.8 % 35.0 - 47.0 % [facility] Work Phone: Hemoglobin.gastroin testinal spec 1 Ql (Stl) 12.8 g/dL 11.7 - 16.0 g/dL [facility] Work Phone: MCH (RBC) [Entitic mass] 32.3 pg 26.0 - 34.0 pg [facility] Work Phone: MCHC (RBC) [Mass/Vol] 34.0 % 32.0 - 36.0 % [facility] Work Phone: MCV (RBC) [Entitic vol] 95.0 fL 79.0 - 98.0 fL [facility] Work Phone: Platelet distribution width (Bld) [Ratio] 12.8 % 11.5 - 14.5 % [facility] Work Phone: Platelet mean volume (Bld) [Entitic vol] 8.3 fL 7.4 - 10.4 fL [facility] Work Phone: Platelets (Bld) [#/Vol] 240 10*3/uL 140 - 440 10*3/uL [facility] Work Phone: RBC (Bld) [#/Vol] 3.98 10*6/uL 3.80 - 5.2 0 10*6/uL [facility] Work Phone: WBC (Bld) [#/Vol] 5.7 10*3/uL 3.6 - 10.7 10*3/uL [facility] Work Phone: Test Performed by [facility], [address] [place], [place] [address] [facility] Work Phone: [facility] Work Phone: Comp Metabolic Panelon 01-01 Calcium [Mass/Vol] 10.2 mg/dL Normal 8.4-10.4 [facility] Comment on above: Performed By: #### H PAUL CMP3 #### [facility] [address] [place] [address] ALP [Catalytic activity/Vol] 57 U/L Normal 38-126 [facility] Comment on above: Performed By: #### H PAUL, CMP3 #### [facility] [address] [place] [address] ALT [Catalytic activity/Vol] 14 U/L Normal 0-34 [facility] Comment on above: Result Comment: The ALT test is performed by an updated assay method. Please note that the reference intervals have been changed and are now sex specific. Performed By: #### H PAUL CMP3 #### [facility] [address] [place] [address] Anion gap [Moles/Vol] 5 mmol/L Normal 3-13 [facility] Comment on above: Performed By: #### H PAUL CMP3 #### [facility] [address] [place] [address] AST [Catalytic activity/Vol] 26 U/L Normal 15-46 [facility] Comment on above: Performed By: #### H PAUL CMP3 #### [facility] [address] [place] [address] CO2 [Moles/Vol] 28 mmol/L Normal 22-30 [facility] Comment on above: Performed By: #### H PAUL CMP3 #### [facility] [address] [place] [address] Glucose [Mass/Vol] 96 mg/dL Normal 70-100 [facility] Comment on above: Performed By: #### H PAUL CMP3 #### [facility] [address] [place] [address] Protein [Mass/Vol] 7.7 g/dL Normal 6.3-8.2 [facility] Comment on above: Performed By: #### H PAUL CMP3 #### [facility] [address] [place] [address] Urea nitrogen [Mass/Vol] 12 mg/dL Normal 7-20 [facility] Comment on above: Performed By: #### Pippa MILLER CMP3 #### [employer] [facility] [address] [place] [address] Bilirubin [Mass/Vol] 0.5 mg/dL Normal 0.2-1.3 [facility] Comment on above: Performed By: #### Pippa MILLER CMP3 #### [employer] [facility] [address] [place] [address] Creatinine [Mass/Vol] 0.60 mg/dL Normal 0.52-1.25 [facility] Comment on above: Performed By: #### Pippa MILLER CMP3 #### [employer] [facility] [address] [place] [address] eGFR OTHER > 90.0 Normal >60 [facility] Comment on above: Result Comment: KDIG O guidelines provide the following GFR categories: Stage GFR(ml/min/1.73 m2) Terms G1 >=90 Normal or high G2 60-89 Mildly decreased* G3a 45-59 Mildly to moderately decreased G3b 30-44 Moderately to severely decreased G4 15-29 Severely decreased G5 <15 Kidney failure *Relative to young adult level. In the absence of evidence of kidney damage, neither GFR category G1 nor G2 fulfill the criteria for CKD. The CKD-EPI equation is validated in individuals 18 years of age and older. Currently the best equation for estimating glomerular filtration rate (GFR) from serum creatinine in children is the Bedside Garcia equation. It is less accurate in patients with extremes of muscle mass, restriction of dietary protein, ingestion of creatine, extra-renal metabolism of creatinine, or treatment with medications that affect renal tubular creatinine secretion. Performed By: #### CHELITA BARBER #### [employer] [facility] [address] [place] [address] GFR/1.73 sq M.predicted among blacks MDRD (S/P/Bld) [Vol rate/Area] mL/min/{1.73_m2} Normal >60 [facility] Comment on above: Performed By: #### Pippa MILLER CMP3 #### [facility] [address] [place] [address] Albumin [Mass/Vol] 4.7 g/dL Normal 3.5-5.0 [facility] Comment on above: Performed By: #### Pippa MILLER CMP3 #### [facility] [address] [place] [address] Chloride [Moles/Vol] 105 mmol/L Normal 98-107 [facility] Comment on above: Performed By: #### H IANG, CMP3 #### [facility] [address] [place] [address] Potassium [Moles/Vol] 5.0 mmol/L Normal 3.5-5.1 [facility] Comment on above: Performed By: #### H PAUL CMP3 #### [facility] [address] [place] [address] Sodium [Moles/Vol] 138 mmol/L Normal 135-145 [facility] Comment on above: Performed By: #### H PAUL CMP3 #### [facility] [address] [place] [address] Comprehensive Metabolic Pane lOrdered By: Mal Geiger on 01-01-2021 Albumin [Mass/Vol] 4.7 g/dL 3.5 - 5.0 g/dL [facility] Work Phone: ALP (Bld) [Catalytic activity/Vol] 57 U/L 38 - 126 U/L [facility] Work Phone: ALT [Catalytic activity/Vol] 14 U/L 0 - 34 U/L [facility] Work Phone: Comment on above: The ALT test is perf ormed by an updated assay method. Please note that the reference intervals have been changed and are now sex specific. Anion gap [Moles/Vol] 5 mmol/L 3 - 13 mmol/L [facility] Work Phone: AST [Catalytic activity/Vol] 26 U/L 15 - 46 U/L [facility] Work Phone: Bilirubin [Mass/Vol] 0.5 mg/dL 0.2 - 1.3 mg/dL [facility] Work Phone: Calcium [Mass/Vol] 10.2 mg/dL 8.4 - 10. 4 mg/dL [facility] Work Phone: Chloride [Moles/Vol] 105 mmol/L 98 - 107 mmol/L [facility] Work Phone: CO2 [Moles/Vol] 28 mmol/L 22 - 30 mmol/L [facility] Work Phone: Creatinine [Mass/Vol] 0.6 mg/dL 0.52 - 1.25 mg/dL [facility] Work Phone: EGFR IF NonAfrican Cameroonian >90.0 >60 mL/min [facility] Work Phone: Comment on above: KDIGO guidelines pro vide the following GFR categories: Stage GFR(ml/min/1.73 m2) Terms G1 >=90 Normal or high G2 60-89 Mildly decreased* G3a 45-59 Mildly to moderately decreased G3b 30-44 Moderately to severely decreased G4 15-29 Severely decreased G5 <15 Kidney failure *Relative to young adult level. In the absence of evidence of kidney damage, neither GFR category G1 nor G2 fulfill the criteria for CKD. The CKD-EPI equation is validated in individuals 18 years of age and older. Currently the best equation for estimating glomerular filtration rate (GFR) from serum creatinine in children is the Bedside Garcia equation. It is less accurate in patients with extremes of muscle mass, restriction of dietary protein, ingestion of creatine, extra-renal metabolism of creatinine, or treatment with medications that affect renal tubular creatinine secretion. Free PSA/Total PSA [Mass fraction] 7.7 g/dL 6.3 - 8.2 g/dL [facility] Work Phone: GFR/1.73 sq M.predicted among blacks MDRD (S/P/Bld) [Vol rate/Area] mL/min/{1.73_m2} >60 mL/min [facility] Work Phone: Glucose [Mass/Vol] 96 mg/dL 70 - 100 mg/dL [facility] Work Phone: Potassium [Moles/Vol] 5.0 mmol/L 3.5 - 5.1 mmol/L [facility] Work Phone: Sodium [Moles/Vol] 138 mmol/L 135 - 145 mmol/L [facility] Work Phone: Urea nitrogen (BldV) [Mass/Vol] 12 mg/dL 7 - 20 mg/dL [facility] Work Phone: Test Performed by [facility], [address] [place] [address] [facility] Work Phone: [facility] Work Phone: Hemogramon 01-01-2021 Erythrocyte distribution width (RBC) [Ratio] 12.8 % Normal 11.5-14.5 [facility] Comment on above: Performed By: #### Pippa MILLER CMP3 #### [facility] [address] [place] [address] Hematocrit (Bld) [Volume fraction] 37.8 % Normal 35.0-47.0 [facility] Comment on above: Performed By: #### Pippa MILLER CMP3 #### [facility] [address] [place] [address] Hemoglobin (Bld) [Mass/Vol] 12.8 g/dL Normal 11.7-16.0 [facility] Comment on above: Performed By: #### Pippa MILLER CMP3 #### [place] [address] [place] [address] MCH (RBC) [Entitic mass] 32.3 pg Normal 26.0-34.0 [facility] Comment on above: Performed By: #### Pippa MILLER CMP3 #### [facility] [address] [place] [address] MCHC 34.0 % Normal 32.0-36.0 [facility] Comment on above: Performed By: #### Pippa MILLER CMP3 #### [facility] [address] [place] [address] MCV (RBC) [Entitic vol] 95.0 fL Normal 79.0-98.0 [facility] Comment on above: Performed By: #### H PAUL CMP3 #### [facility] [address] [place] [address] Platelet mean volume (Bld) [Entitic vol] 8.3 fL Normal 7.4-10.4 [facility] Comment on above: Performed By: #### H EMOJohn CMP3 #### [place] [address] [place] [address] Platelets (Bld) [#/Vol] 240 10*3/uL Normal 140-440 [facility] Comment on above: Performed By: #### H MARIA C MILLER3 #### [facility] [address] [place] [address] RBC (Bld) [#/Vol] 3.98 10*6/uL Normal 3.80-5.20 [facility] Comment on above: Performed By: #### H MARIA C MILLER3 #### [facility] [address] [place] [address] WBC (Bld) [#/Vol] 5.7 10*3/uL Normal 3.6-10.7 [facility] Comment on above: Performed By: #### H MARIA C MILLER3 #### [facility] [address] [place] [address] CR Hip w/ Pelvis Bilateral 5 + Viewson 11-23-2020 CR Hip w/ Pelvis Bilateral 5+ Views Patient Name: MANUEL GUADARRAMA Diagnostic Radiology ACCESSION EXAM DATE/TIME PROCEDURE ORDERING PROVIDER [id number] 11/23/2020 09:10 EDT CR Hip w/ Pelvis MD GEIGER KIEL Bilateral 5+ View IZABELLA CPT code 66630 Reason For Exam (CR Hip w/ Pelvis Bilateral 5+ View) pain Report Indication: Bilateral hip pain. Weightbearing AP view of the pelvis, and AP and frog-leg views of the right and left hips. Severe right-sided joint space narrowing. Subchondral sclerosis of the acetabular rim. Prominent lateral marginal osteophytes. Left hip joint spaces are fairly well preserved. Mild arthritic changes of the sacroiliac joints noted. Weightbearing view shows the right hemipelvis 8mm lower than the left hemipelvis. IMPRESSION: Severe osteoarthritic degenerative changes of the right hip. Report Dictated on Final Dictating Physician: MD AUGUSTINE LAURA Signed Date and Time: 11/23/2020 10:36 am Signed by: MD AUGUSTINE LAURA Transcribed Date and Time: 11/23/2020 10:37 Normal [facility] XR HIP W PELVIS MIN 5 VWS BI LATERALon 04-08-2021 Patient Name: MANUEL GUADARRAMA Diagnostic Radiology ACCESSION EXAM DATE/TIME PROCEDURE ORDERING PROVIDER [id number] 11/23/2020 09:10 EDT CR Hip w/ Pelvis MD GEIGER KIEL Bilateral 5+ View IZABELLA CPT code 22610 Reason For Exam (CR Hip w/ Pelvis Bilateral 5+ View) pain Report Indication: Bilateral hip pain. Weightbearing AP view of the pelvis, and AP and frog-leg views of the right and left hips. Severe right-sided joint space narrowing. Subchondral sclerosis of the acetabular rim. Prominent lateral marginal osteophytes. Left hip joint spaces are fairly well preserved. Mild arthritic changes of the sacroiliac joints noted. Weightbearing view shows the right hemipelvis 8mm lower than the left hemipelvis. IMPRESSION: Severe osteoarthritic degenerative changes of the right hip. Report Dictated on --- Final --- Dictating Physician: MD AUGUSTINE LAURA Signed Date and Time: 11/23/2020 10:36 am Signed by: MD AUGUSTINE LAURA Transcribed Date and Time: 11/23/2020 10:37 [facility] Work Phone: [facility]omas[facility]ario Incoming Radiology Results From [facility] - 11/23/2020 10:38 AM EDT Patient Name: MANUEL GUADARRAMA Diagnostic Radiology ACCESSION EXAM DATE/TIME PROCEDURE ORDERING PROVIDER [id number] 11/23/2020 09:10 EDT CR Hip w/ Pelvis MD GEIGER KIEL Bilateral 5+ View IZABELLA CPT code 99727 Reason For Exam (CR Hip w/ Pelvis Bilateral 5+ View) pain Report Indication: Bilateral hip pain. Weightbearing AP view of the pelvis, and AP and frog-leg views of the right and left hips. Severe right-sided joint space narrowing. Subchondral sclerosis of the acetabular rim. Prominent lateral marginal osteophytes. Left hip joint spaces are fairly well preserved. Mild arthritic changes of the sacroiliac joints noted. Weightbearing view shows the right hemipelvis 8mm lower than the left hemipelvis. IMPRESSION: Severe osteoarthritic degenerative changes of the right hip. Report Dictated on --- Final --- Dictating Physician: MD AUGUSTINE LAURA Signed Date and Time: 11/23/2020 10:36 am Signed by: MD AUGUSTINE LAURA Transcribed Date and Time: 11/23/2020 10:37 [facility] Work Phone: Otheron 08-17-2012 CONVERTED ELECTRONIC SIGNATURE PRIYANKA ZAVALA(ASCP) (Electronic signature on file) Final Signed Out: 08/17/2012 15:35 [facility] CONVERTED FINAL DIAGNOSIS Relevant History: Other [place]: Ablation Comment: Please do an HPV reflex test if ASCUS. SPECIMEN ADEQUACY SATISFACTORY FOR EVALUATION. ENDOCERVICAL/TRANSFORMA TION ZONE COMPONENTS PRESENT. INTERPRETATION/RESULT NEGATIVE FOR INTRAEPITHELIAL LESION OR MALIGNANCY. [facility] CONVERTED GROSS DESCRIPTION SPECIMEN: THIN PREP CERVICAL/ENDOCERVICAL [facility] CONVERTED ORDERING PROVIDER Ordering Provider: JAY FREDERICK [facility] CONVERTED PAP DISCLAIMER The Pap test serves as a screening tool for early detection of cervical cancer. The Pap test does not represent a final diagnostic test for cervical cancer. Furthermore, the Pap test was not designed to screen for other malignancies (endometrial, ovarian cancer, etc....). False negatives and false positives have occurred. If clinically indicated, further patient evaluation is recommended. [facility] Vital Signs Date Time Vital Sign Value Performing Clinician Christiano wilkinson 07-13-2024 09:03-0500 Body height 166.4 cm Edgar Pittoscar ADKINS Project [employer] Work Phone: [facility] [employer] 07-13-2024 09:03-0500 Body mass index (BMI) [Ratio] 22.94 kg/m2 Edgar Pittoscar ADKINS [employer] Work Phone: [facility] [employer] 07-13-2024 09:03-0500 Body weight 63.5 kg Edgar Mcnulty APRN [employer] Work Phone: [facility] [employer] 06-02-2024 09:08-0400 Diastolic blood pressure 78 mm[Hg] Jefry MONGE-C Work Phone: [facility] [employer] 06-02-2024 09:08-0400 Systolic blood pressure 126 mm[Hg] Jefry MONGE-C Work Phone: [facility] [employer] 06-02-2024 08:46-0400 Body height 166.4 cm Jefry MONGE-C Work Phone: [facility] [employer] 06-02-2024 08:46-0400 Body mass index (BMI) [Ratio] 23.04 kg/m2 Jefry MONGE-C Work Phone: [facility] [employer] 06-02-2024 08:46-0400 Body temperature 97.9 [degF] Jefry MONGE-C Work Phone: [facility] [employer] 06-02-2024 08:46-0400 Body weight 63.78 kg Jefry MONGE-C Work Phone: [facility] [employer] 06-02-2024 08:46-0400 Heart rate 86 /min Jefry MONGE-C Work Phone: [facility] [employer] 06-02-2024 08:46-0400 SaO2% (BldA) [Mass fraction] 100 % Jefry MONGE-C Work Phone: [facility] [employer] 05-21-2024 09:09-0400 Body height 165.1 cm Sofi Cheryl FARM MARKETER - ARCHIVES TECHNICIAN Work Phone: [facility] [employer] 05-21-2024 09:09-0400 Body mass index (BMI) [Ratio] 22.96 kg/m2 Sofi Cheryl FARM MARKETER - ARCHIVES TECHNICIAN Work Phone: [facility] [employer] 05-21-2024 09:09-0400 Body weight 62.6 kg [place] Vandemere FARM MARKETER - ARCHIVES TECHNICIAN Work Phone: [facility] [employer] 05-21-2024 09:09-0400 Diastolic blood pressure 78 mm[Hg] [place] Cheryl FARM MARKETER - ARCHIVES TECHNICIAN Work Phone: [facility] [employer] 05-21-2024 09:09-0400 Systolic blood pressure 152 mm[Hg] [place] Cheryl FARM MARKETER - ARCHIVES TECHNICIAN Work Phone: [facility] [employer] 12-10-2023 09:25-0400 Diastolic blood pressure 80 mm[Hg] Jefry MONGE-C Work Phone: [facility] [employer] 12-10-2023 09:25-0400 Systolic blood pressure 146 mm[Hg] Jefry Pak PA-C Work Phone: [facility] [employer] 12-10-2023 08:48-0400 Body height 166.4 cm Jefry Pak PA-C Work Phone: [facility] 12-10-2023 08:48-0400 Body mass index (BMI) [Ratio] 22.62 kg/m2 Jefry Pak PA-C Work Phone: [facility] 12-10-2023 08:48-0400 Body temperature 97 [degF] Jefry Pak PA-C Work Phone: [facility] 12-10-2023 08:48-0400 Body weight 62.6 kg Jefry Pak PA-C Work Phone: [facility] 12-10-2023 08:48-0400 Heart rate 69 /min Jefry Pak PA-C Work Phone: [facility] 12-10-2023 08:48-0400 SaO2% (BldA) [Mass fraction] 98 % Jefry Lobatoo PA-C Work Phone: [facility] 09-17-2022 11:00-0500 Body height 166.4 cm Damon Logan DO Work Phone: [facility] [employer] 09-17-2022 11:00-0500 Body mass index (BMI) [Ratio] 21.47 kg/m2 Damon Logan DO Work Phone: [facility] [employer] 09-17-2022 11:00-0500 Body temperature 97.7 [degF] Damon Logan DO Work Phone: [facility] [employer] 09-17-2022 11:00-0500 Body weight 59.42 kg Damon Logan DO Work Phone: [facility] 09-17-2022 11:00-0500 Diastolic blood pressure 77 mm[Hg] Damon Logan DO Work Phone: [facility] [employer] 09-17-2022 11:00-0500 Heart rate 89 /min Damon Logan DO Work Phone: [facility] [employer] 09-17-2022 11:00-0500 SaO2% (BldA) [Mass fraction] 99 % Damon Logan DO Work Phone: [facility] 09-17-2022 11:00-0500 Systolic blood pressure 122 mm[Hg] Damon Logan DO Work Phone: [facility] [employer] 01-01-2021 11:23-0400 Diastolic blood pressure 80 mm[Hg] Mal Geiger MD Work Phone: [facility] Work Phone: 01-01-2021 11:23-0400 Heart rate 70 /min Mal Geiger MD Work Phone: [facility] Work Phone: 01-01-2021 11:23-0400 Systolic blood pressure 153 mm[Hg] Mal Geiger MD Work Phone: [facility] Work Phone: 01-01-2021 10:39-0400 Body temperature 97.81 [degF] Mal Geiger MD Work Phone: [facility] Work Phone: 01-01-2021 10:39-0400 Respiratory rate 16 /min Mal Geiger MD Work Phone: [facility] Work Phone: 01-01-2021 10:39-0400 SaO2% (BldA) [Mass fraction] 99 % Mal Geiger MD Work Phone: [facility] Work Phone: 01-01-2021 10:39-0400 Body height 166.4 cm Mal Geiger MD Work Phone: [facility] Work Phone: 01-01-2021 10:39-0400 Body mass index (BMI) [Ratio] 20.24 kg/m2 Mal Geiger MD Work Phone: [facility] Work Phone: 01-01-2021 10:39-0400 Body weight 56.02 kg Mal Geiger MD Work Phone: [facility] Work Phone: Encounters Encounter Date Encounter Type Care Provider Facility Start: 06-14-2025 End: 06-14-2025 ambulatory CATALINA SUGGS Facility:[facility] Start: 06-03-2025 End: 06-07-2025 Telephone encounter Shawna Kenney DO Work Phone: [facility] Comment on above: Other (Concerns and Questions ) Start: 06-02-2025 End: 06-02-2025 ambulatory RADHAARIANNA MILANK Facility:[facility] Start: 05-18-2025 End: 06-01-2025 Telephone encounter Shawna Kenney DO Work Phone: [facility] Comment on above: Referral Start: 05-13-2025 End: 05-13-2025 Subsequent hospital visit by physician Shawna Kenney DO Work Phone: [facility] Comment on above: Brain aneurysm ([facility]/ HCC) Start: 05-13-2025 End: 05-13-2025 ambulatory SHAWNA KENNEY [facility] Start: 05-03-2025 End: 05-03-2025 Subsequent hospital visit by physician [facility] Mr Exam Room 1 [facility] Comment on above: Sudden idiopathic he aring loss, right ear; Other abnormal auditory perceptions, right ear Start: 05-03-2025 End: 05-03-2025 [facility] Start: 02-21-2025 End: 02-22-2025 Carley Pak PA-C Work Phone: [facility] [place] Comment on above: Insomnia, unspecifie d type; Anxiety Start: 08-13-2024 End: 08-13-2024 Subsequent hospital visit by physician Edgar Mcnulty FARM MARKETER - ARCHIVES TECHNICIAN Work Phone: [facility] MRI Comment on above: Neck pain; DDD (degenerative disc disease), cervical; Cervical spondylosis; Spondylolisthesis of cervical region Start: 08-13-2024 End: 08-13-2024 ambulatory EDGAR MCNULTY [facility] Start: 08-03-2024 End: 08-03-2024 ambulatory Damon Logan [facility] Start: 07-13-2024 End: 07-13-2024 Office outpatient new 30 minutes Edgar Mcnulty FARM MARKETER - ARCHIVES TECHNICIAN Work Phone: [facility] [place] Comment on above: Neck pain on left si de (Primary Dx); DDD (degenerative disc disease), cervical; Cervical spondylosis; Spondylolisthesis of cervical region Start: 07-13-2024 End: 07-13-2024 ambulatory DAMON LOGAN [facility] Start: 07-07-2024 End: 07-13-2024 Telephone encounter Damon Logan DO Work Phone: [facility] [place] Comment on above: Orders; Other (Nile ng refund) Start: 06-02-2024 End: 06-02-2024 Office outpatient visit 25 minutes Jefry Pak PA-C Work Phone: [facility] Comment on above: Anxiety (Primary Dx) ; Insomnia, unspecified type; Breast cancer screening by mammogram Start: 06-01-2024 End: 06-01-2024 [facility]ulatory [facility] Start: 06-01-2024 End: 06-01-2024 Patient encounter procedure [facility] Start: 05-21-2024 End: 05-21-2024 Office outpatient visit 15 minutes Sofi Luna FARM MARKETER - ARCHIVES TECHNICIAN Work Phone: [facility] [place] Comment on above: Neck pain on left si de (Primary Dx); Status post right hip replacement; Primary osteoarthritis of right hip Start: 12-10-2023 End: 12-10-2023 Assay of hemosiderin, quant Jefry Pak PA-C Work Phone: [facility] [employer] Work Phone: Start: 12-10-2023 End: 12-10-2023 Patient encounter procedure Jefry Pak PA-C Work Phone: [facility] Comment on above: Routine general medi naopleon examination at health care facility (Primary Dx); Insomnia, unspecified type; Screening for lipid disorders; Screening for diabetes mellitus; Elevated blood pressure reading without diagnosis of hypertension Start: 08-01-2023 End: 08-01-2023 [facility] Work Phone: Start: 08-01-2023 End: 08-01-2023 Patient encounter procedure [facility] Work Phone: Start: 07-17-2023 Orders Only Damon hughes DO Work Phone: [facility] Comment on above: Breast cancer screen ing by mammogram (Primary Dx) Start: 09-26-2022 Telephone encounter Mal robbins MD Work Phone: [facility] Comment on above: Antibiotics for Index al Cleaning Start: 09-23-2022 Telephone encounter Damon garcia DO Work Phone: [facility] Comment on above: Results Start: 09-17-2022 End: 09-17-2022 Office outpatient visit 15 minutes Damon Logan DO Work Phone: [facility] Comment on above: Diarrhea of presumed infectious origin (Primary Dx); Diverticular disease of colon; Functional diarrhea; Infectious gastroenteritis and colitis, unspecified; 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; Sepsis, unspecified organism (HCC); Diarrhea, unspecified Start: 06-28-2022 End: 06-28-2022 [facility] Work Phone: Start: 06-28-2022 End: 06-28-2022 Patient encounter procedure [facility] Start: 07-05-2021 End: 07-05-2021 Subsequent hospital visit by physician Mal Geiger MD Work Phone: [facility] Start: 02-08-2021 End: 02-08-2021 Subsequent hospital visit by physician Sofi Luna FARM MARKETER - ARCHIVES TECHNICIAN Work Phone: [facility] Start: 01-01-2021 End: 01-01-2021 Subsequent hospital visit by physician Mal Geiger MD Work Phone: [facility] Comment on above: Arrived Start: 11-23-2020 End: 11-23-2020 Subsequent hospital visit by physician Mal Geiger Work Phone: [facility] Start: 08-14-2012 End: 08-14-2012 Patient encounter procedure Jay Frederick Work Phone: [facility] Start: 08-14-2012 Results Only Jay moses Work Phone: [facility] Procedures Date Procedure Procedure Detail Performing Clinician Start: 08-03-2024 Mammography Edgar santoyo FARM MARKETER - ARCHIVES TECHNICIAN Work Phone: Start: 12-10-2023 Adult depression scr eening assessment Jefry Pak PA-C Work Phone: Start: 12-10-2023 Lipid 1996 panel - S seamus or Plasma Sofi Luna FARM MARKETER [employer] ARCHIVES TECHNICIAN Work Phone: Start: 08-01-2023 End: 08-01-2023 Screening mammography Start: 06-28-2022 End: 06-28-2022 Screening mammography Start: 10-04-2021 Colonoscopy Damon hernandez DO Work Phone: Start: 02-08-2021 Radex hip unilateral with pelvis minimum 4 views Sofi Luna FARM MARKETER - ARCHIVES TECHNICIAN Work Phone: Start: 01-01-2021 Comprehensive metabo lic panel Jorge Bola Yeropoli MD Work Phone: Start: 01-01-2021 Ecg routine ecg w/le ast 12 lds w/i&r Jorgeadriana Kline MD Work Phone: Start: 11-23-2020 Radex hips bilateral with pelvis minimum 5 views [place] Avis Geiger Work Phone: Start: 08-14-2012 CONVERTED CYTOLOGY LEAD DATA ENTRY OPERATOR Jay Frederick Work Phone: Plan of Treatment Date Care Activity Detail Author Start: 10-04-2031 Screening for malignant neoplasm of colon [facility] Start: 2031 RSV Immunization for Adults (1 - 1-dose 75+ series) RSV Immunization for Adults (1 - 1-dose 75+ series) [facility] Start: 12-09-2028 Lipid panel Lipid Panel [facility] Start: 08-03-2025 Screening for malignant neoplasm of breast Mammogram [facility] Start: 07-26-2025 End: 07-26-2025 Patient encounter procedure 07/26/2025 9:20 AM EST Office Visit [address] [place] [address] Shawna Kenney, [address] [place] [address] [address] [place] [address] [facility] Start: 07-19-2025 End: 07-19-2025 Patient encounter procedure 07/19/2025 9:45 AM EST Office Visit [facility] [address] [phone] Christian Roberts MD [address] [place] [phone] [facility] [place] Start: 07-13-2025 End: 07-13-2025 Patient encounter procedure 07/13/2025 7:40 AM EST Office Visit [address] [place] [address] Damon Logan DO [address] [place] [address] [facility] Start: 04-18-2025 COVID-19 Vaccine ( season) COVID-19 Vaccine ( season) [facility] Start: 04-18-2025 Influenza vaccination Influenza Vaccine (#1) [facility] Start: 01-08-2025 Medicare Annual Wellness (AWV) Medicare Annual Wellness (AWV) [facility] Start: 12-09-2024 Depression Screening Depression Screening [facility] Start: 08-01-2024 Screening for malignant neoplasm of breast Mammogram [facility] Start: 07-12-2024 End: 08-02-2025 DBT Breast - bilateral screening Bilateral screening mammogram with tomosynthesis Imaging Routine Breast cancer screening by mammogram Expected: 07/12/2024, Expires: 08/02/2025 [facility] Work Phone: Comment on above: Expected: 07/12/2024, Expires: Start: 06-02-2024 End: 06-02-2024 Patient encounter procedure 06/02/2024 9:00 AM EDT Office Visit [facility] [place] [address] [place] [address] Jefry Pak PA-C [address] [place] [address] [facility] Start: 04-18-2024 COVID-19 Vaccine ( season) COVID-19 Vaccine ( season) [facility] Start: 04-18-2024 COVID-19 Vaccine ( season) COVID-19 Vaccine ( season) [facility] Start: 04-18-2024 Influenza vaccination [facility] Start: 12-10-2023 End: 12-09-2024 Comprehensive metabolic 1998 panel - Serum or Plasma Comprehensive metabolic panel Lab Routine Screening for diabetes mellitus Expected: 12/10/2023 (Approximate), Expires: 12/09/2024 [facility] Comment on above: Expected: 12/10/2023 (Approximate), Expi res: 12/09/2024 Start: 12-10-2023 End: 12-09-2024 Lipid 1996 panel - Serum or Plasma Lipid panel Lab Routine Screening for lipid disorders Expected: 12/10/2023 (Approximate), Expires: 12/09/2024 [facility] [employer] Work Phone: Comment on above: Expected: 12/10/2023 (Approximate), Expi res: 12/09/2024 Start: 12-05-2023 End: 12-05-2023 Patient encounter procedure 12/05/2023 8:00 AM EDT Office Visit [facility] [address], [place] [id number] Lana Silav, FARM MARKETER - ARCHIVES TECHNICIAN [address] [place] [address] [facility] Start: 07-17-2023 End: 09-16-2024 DBT Breast - bilateral screening Bilateral screening mammogram with tomosynthesis Imaging Routine Breast cancer screening by mammogram Expected: 07/17/2023, Expires: 09/16/2024 [facility] [employer] Work Phone: Comment on above: Expected: 07/17/2023, Expires: Start: 06-28-2023 Screening for malignant neoplasm of breast Mammogram [facility] Start: 04-18-2023 COVID-19 Vaccine () COVID-19 Vaccine () [facility] Start: 04-18-2023 Influenza vaccination Influenza Vaccine (#1) [facility] Start: 10-12-2022 Medicare Annual Wellness (AWV) Medicare Annual Wellness (AWV) [facility] Start: 09-17-2022 End: 09-17-2023 CBC W Auto Differential panel - Blood CBC auto differential Lab Routine Diarrhea, unspecified Expected: 09/17/2022 (Approximate), Expires: 09/17/2023 [facility] Comment on above: Expected: 09/17/2022 (Approximate), Expi res: 09/17/2023 Start: 09-17-2022 End: 09-17-2023 Comprehensive metabolic 1998 panel - Serum or Plasma Comprehensive metabolic panel Lab Routine Diarrhea, unspecified Expected: 09/17/2022 (Approximate), Expires: 09/17/2023 [facility] Comment on above: Expected: 09/17/2022 (Approximate), Expi res: 09/17/2023 Start: 09-17-2022 End: 09-17-2023 Gastrointestinal pathogens panel - Stool by OMARI with probe detection Gastrointestinal PCR Panel Microbiology Routine Diarrhea of presumed infectious origin Infectious gastroenteritis and colitis, unspecified 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 Sepsis, unspecified organism (HCC) Diarrhea, unspecified Expected: 09/17/2022 (Approximate), Expires: 09/17/2023 [facility] Work Phone: Comment on above: Expected: 09/17/2022 (Approximate), Expi res: 09/17/2023 Start: 09-12-2022 Pneumococcal Vaccine: 50+ Years (2 of 2 - PCV) Pneumococcal Vaccine: 50+ Years (2 of 2 - PCV) [facility] Start: 09-12-2022 Pneumococcal Vaccine: 65+ Years (2 - PCV) Pneumococcal Vaccine: 65+ Years (2 - PCV) [facility] Start: 09-12-2022 Pneumococcal Vaccine: 65+ Years (2 of 2 - PCV) Pneumococcal Vaccine: 65+ Years (2 of 2 - PCV) [facility] Start: 06-22-2022 Screening for malignant neoplasm of breast Breast cancer screen [facility] Start: 01-09-2022 Creatinine measurement Creatinine monitoring [facility] Start: 01-09-2022 Potassium monitoring Potassium monitoring [facility] Start: 01-01-2022 Creatinine measurement Creatinine monitoring [facility] Work Phone: Start: 01-01-2022 Potassium monitoring Potassium monitoring [facility] Work Phone: Start: 10-01-2021 Screening for malignant neoplasm of colon Colon cancer screen colonoscopy [facility] Start: 07-05-2021 End: 07-05-2021 Patient encounter procedure 07/05/2021 Office Visit Orthopedic Surgery Mal Geiger MD [address], [address] [place], [place] [phone] [facility] Start: 07-05-2021 End: 07-05-2021 Nursing evaluation of patient and report 07/05/2021 Nurse Only Orthopedic Surgery [facility] Start: 06-17-2021 Lipid panel Lipid screen [facility] Start: 04-18-2021 Influenza vaccination [facility] Start: 02-08-2021 End: 02-08-2021 Patient encounter procedure 02/08/2021 Office Visit Orthopedic Surgery Cheryl Sofi, FARM MARKETER - ARCHIVES TECHNICIAN [address] [place] [address] [phone] [facility] Start: 02-08-2021 End: 02-08-2021 Nursing evaluation of patient and report 02/08/2021 Nurse Only Orthopedic Surgery [facility] Start: 01-08-2021 End: 01-08-2021 Patient encounter procedure 01/08/2021 Appointment General Surgery Mal Geiger MD [address], [address] [place], [place] [id number] [facility] Start: 11-30-2020 COVID-19 Vaccine (2 - Moderna 2-dose series) COVID-19 Vaccine (2 - Moderna 2-dose series) [facility] Work Phone: Start: 04-18-2020 Influenza vaccination INFLUENZA (#1) [facility] Start: 07-06-2018 PAP TESTING PAP TESTING [facility] Start: 08-29-2017 Creatinine measurement Creatinine monitoring [facility] Work Phone: Start: 08-29-2017 Potassium monitoring Potassium monitoring [facility] Work Phone: Start: 2016 RSV Immunization aged 60 or older (1 - 1-dose 60+ series) RSV Immunization aged 60 or older (1 - 1-dose 60+ series) [facility] Start: 10-02-2012 Shingles Vaccine (2 of 3) Shingles Vaccine (2 of 3) [facility] Start: 2006 SHINGRIX VACCINE (1 of 2) SHINGRIX VACCINE (1 of 2) [facility] Start: 2006 Tuberculosis screening COLORECTAL CANCER SCREENING,SEE MODIFIER [facility] Start: 2001 DIABETES SCREEN DIABETES SCREEN [facility] Start: 2001 LIPID SCREEN LIPID SCREEN [facility] Start: 1996 Mammography MAMMOGRAM [facility] Start: 1986 HPV TESTING HPV TESTING [facility] Start: 1986 Screening for malignant neoplasm of cervix [facility] Start: 1977 Screening for malignant neoplasm of cervix [facility] Start: 1975 DTaP/Tdap/Td vaccine (1 - Tdap) DTaP/Tdap/Td vaccine (1 - Tdap) [facility] Start: 1975 DTaP/Tdap/Td Vaccines (1 - Tdap) DTaP/Tdap/Td Vaccines (1 - Tdap) [facility] Start: 1975 Urine microalbumin profile DTAP,TDAP,TD (1 - Tdap) [facility] Start: 1974 HEPATITIS C SCREENING HEPATITIS C SCREENING [facility] Start: 1974 Hepatitis C screening Hepatitis C Screening [facility] Start: 1974 HIV SCREENING HIV SCREENING [facility] Start: 1971 HIV screening HIV screen [facility] Start: 1968 COVID-19 Vaccine (1) COVID-19 Vaccine (1) [facility] Start: 1968 Depression Screening Depression Screening [facility] Start: 03-04-1957 Examination of skin Derm Melanoma Skin Check [facility] Start: 1956 Hepatitis B Vaccines (1 of 3 - 3-dose series) Hepatitis B Vaccines (1 of 3 - 3-dose series) [facility] Start: 1956 Hepatitis C screening Hepatitis C screen [facility] Start: 1956 Lipid panel Lipid Panel [facility] Start: 1956 Medicare Annual Wellness (AWV) Medicare Annual Wellness (AWV) [facility] Start: 1956 Screening for malignant neoplasm of colon [facility] Start: 1956 Screening for osteoporosis Bone Density Scan [facility] End: 05-13-2025 CTA Head vessels WO and W contrast IV [employer] Work Phone: Comment on above: Once for 1 Occurrences starting 05/13/20 until 05/13/2025 EKG 12 Lead EKG 12 Lead ECG Routine 01/01/2021 10:56 AM EDT [facility] Work Phone: End: 05-03-2025 MR Brain WO and W contrast IV [employer] Work Phone: Comment on above: Once for 1 Occurrences starting 05/03/20 until 05/03/2025 End: 08-13-2024 MR Cervical spine WO contrast [employer] Work Phone: Comment on above: Once for 1 Occurrences starting 08/13/20 24 until 08/13/2024 End: 07-05-2021 XR HIP RIGHT MIN 4VW W PELVIS [facility] Work Phone: Comment on above: Once for 1 Occurrences starting 07/05/20 21 until 07/05/2021 Immunizations Immunization Date Immunization Notes Care Provider Fa cili 07-05-2022 influenza virus vacc ine, unspecified formulation Damon Logan [employer] Work Phone: [facility] 11-21-2021 Shingrix 50 MCG/0.5M L vaccine Damon Logan [employer] Work Phone: [facility] 09-12-2021 pneumococcal polysaccharide vaccine, 23 valent Damon Logan [employer] Work Phone: [employer] 08-07-2012 zoster vaccine, live [place] [employer] Work Phone: Payers Date Payer Category Payer Self-pay [id number] 2022 Medicare supplementa l policy (as second payer) AARP [id number] 2022 Unknown AARP AARP [id number] 2022-Present [address] [place] [address] Supplement [id number] 2022 Unknown [id number] 2021 Medicare [id number] 2021 Medicare [id number] 2020 Unknown [id number] 2020 Unknown WARD [employer] WARD RULE [id number] 2020-Present [address] [place] [address] [id number] 2008 Unknown [facility] [id number] 2008-2013 PPO [id number] Unknown [employer] [id number] Unknown WARD RULE [facility] [id number] Unknown [facility] PACKAGE PLAN [id number] Unknown [id number] Social History Date Type Detail Facility Tobacco smoking stat us LAIS Unknown if ever smoked [facility] Start: 1955 Sex Assigned At Not on file [facility] Start: 11-23-2020 End: 12-10-2023 Tobacco smoking status NHIS Former smoker [facility] Start: 11-23-2020 End: 12-10-2023 Tobacco use and exposure Never used [facility] Work Phone: Start: 11-23-2020 End: 06-02-2024 Alcohol intake Current drinker of alcohol (finding) [facility] Work Phone: Start: 04-14-2020 History SDOH Alcohol Frequency 2 [facility] Work Phone: Start: 04-14-2020 History SDOH Alcohol Std Drinks 1 [facility] Work Phone: Start: 04-14-2020 History SDOH Social Connections Phone 5 [facility] Work Phone: Start: 04-14-2020 History SDOH Social Connections Worship 3 [facility] Work Phone: Start: 04-14-2020 History SDOH Physica l Activity DPW 4 [facility] Work Phone: Start: 01-01-2021 End: 12-10-2023 Alcohol intake [facility] Work Phone: Start: 01-01-2021 Tobacco Comment QUIT IN HIGH SCHOOL [facility] Work Phone: Start: 01-01-2021 Alcohol Comment 3 DAILY [facility] Work Phone: Start: 09-07-2022 End: 09-17-2022 Exposure to SARS-CoV-2 (event) Not sure [facility] Start: 07-10-2018 [facility] Start: 1955 Sex Assigned At Female W [facility] Start: 08-18-1973 End: 08-18-1974 History of tobacco use Current smoker [facility] Start: 08-18-1973 End: 08-18-1974 History of tobacco use Cigarette Smoker [facility] Start: 09-17-2022 End: 12-10-2023 Tobacco use panel [facility] Has the Pl[employer], or [employer] threatened to shut off services in your home in past 12Mo No [facility] Do you belong to any clubs or organizations such as restoration groups, unions, fraternal or athletic groups, or school groups? Yes [facility] Are you now , , , , never or living with a partner? [facility] How often to you hav e a drink containing alcohol? 4 or more times a week [facility] How many standard dr inks containing alcohol do you have on a typical day? 3 or 4 [facility] How often do you hav e 6 or more drinks on 1 occasion? Never [facility] How hard is it for y ou to pay for the very basics like food, housing, medical care, and heating Not hard at all [facility] Do you feel stress - tense, restless, nervous, or anxious, or unable to sleep at night because your mind is troubled all the time - these days [OSQ] Not at all [facility] (I/We) worried wheth er (my/our) food would run out before (I/we) got money to buy more. Never true [facility] Start: 03-18-2022 Sex Female (finding) [facility] Clinical Notes 01-01-2021 to 06-15-2025 Telephone Encounter - Luisa Gutierrez - 06/03/2025 12:54 PM EDTTelephone Encounter - Luisa Gutierrez - 06/03/2025 12:54 PM EDTTelephone Encounter - Ana Samayoa - 05/18/2025 2:48 PM EDTPatient Instructions Note Date & Type Note Facility 06-15-2025 Note Advised patient that she would not need antibiotics for this particular procedure. [facility] 06-14-2025 Note HNO ID: [id number] Author: CATALINA SUGGS MD Service: ? Author Type: Physician Type: Progress Notes Filed: 06/19/2025 18:47 Note Text: [facility]vascular Center: Cerebrovascular Neurosurgery and Endovascular Surgical Neuroradiology New Visit Manuel Ayers [facility]#: [id number] Date of Service: 06/14/2025 Primary Care Provider: No primary care provider on file. The patient was referred by Radha Botello MD for opinion regarding unruptured cerebral aneurysm. I will provide a written report of my findings to the referring through letter, e-communication, or epic. Subjective Last Office Visit: n/a. Last Distance Health Visit: n/a. Chief Complaint: Unruptured aneurysm HPI: The patient is a 69-year-old female presenting for evaluation of an incidental 8???8???7 mm unruptured intracranial aneurysm. - Incidental finding on CTA in April, patient no known family history of brain aneurysms or CVA. - No history of HTN or current antihypertensive medication use. - Former smoker, last smoked in high school. - Denies current use of chronic medications. - Occasionally takes Xanax for sleep issues; last dose was a while ago. - Supplements include lecithin, turmeric, vitamin D3, and a hair supplement containing fish oil. - Engages in daily walking for an hour. - Plans to travel in June; concerned about the timing of the angiogram. - Inquires about potential risks and complications of the angiogram and treatment options. Hearing Loss: - Sudden hearing loss after exposure to a loud train whistle at a parade on March 11. - Describes ear as "totally plugged up" with significant hearing loss. - Initial evaluation by an ENT led to an MRI, which revealed the aneurysm. - Denies dizziness or vertigo associated with the hearing loss. Handedness: Right handed. Smoking: No Illicit drug use: No Personal HX of HTN: No Personal HX of kidney disease: No Family History of SAH, aneurysms, stroke, vascular malformations, other neurological diseases? No NEUS ENDOVASC ROS Ears/Nose/Mouth/Throat: (+) hearing loss, (+) ear fullness Gastrointestinal: (+) abdominal bloating Neurological: (-) dizziness Psychiatric: (+) insomnia There is no problem list on file for this patient. No past surgical history on file. Allergies: Clarithromycin Medications: Current Outpatient Medications Medication Sig ALPRAZolam ER (XANAX XR) 0.5 mg 24 hr tablet Take 0.5 mg by mouth daily at bedtime. Take 1 tablet (0.5mg) by mouth nightly as needed for sleep (use nightly as needed for sleep) for up to 15 doses Cholecalciferol, Vitamin D3, 50 mcg (2,000 unit) cap Take 2,000 Units by mouth once daily. Lecithin 1,200 mg cap Take 1,200 mg by mouth once daily. magnesium citrate solution turmeric 400 mg cap Take 400 mg by mouth once daily. No current facility-administered medications for this visit. SOCIAL HISTORY[1] Objective Patient Entered Questionnaires 06/12/2025 Health Status Impact by Stroke or CVD Impact Somewhat PROMIS/NeuroQoL Score Percentiles 06/12/2025 Physical Health Physical Function Percentile 76 Sleep Percentile 7 Fatigue Percentile 58 Pain Interference Percentile 84 06/12/2025 PROMIS SOCIAL ROLE SCORE Social Role Satisfaction Percentile 84 06/12/2025 Mental Health General Self-Efficacy Percentile 62 06/12/2025 PROMIS Global Health Scale Physical Health Percentile 88 Mental Health Percentile 63 Percentiles provide an indication of how a patient's score ranks in relation to the [place] general population. > 31st percentile is within normal limits or better * < 31st percentile is at least ? SD worse than population, which may be clinically relevant < 16th percentile is at least 1 SD worse than population and warrants attention Descriptive Summary for PROMIS Physical Function T-score = 57 (Percentile 76) No difficulty - Do strenuous activities such as backpacking, skiing, playing tennis, bicycling, or jogging. No difficulty - Do heavy work around the house like scrubbing floors, or lifting or moving heavy furniture. Depression Screenin06/12/2025 PHQ-9 Score 5 Self-Harm Response Not at all PHQ-9 Scores: PHQ-9 Self-Harm (Item 9) Response: 0 - 9 No to Mild depression 0 - Not at all 10 - 14 Moderate depression 1 - Several Days > 15 Severe depression 2 - More than half the days 3 - Nearly every day 06/12/2025 Sleep Apnea Probability Score Probability (%) 22 (Sleep study not recommended) PHYSICAL EXAMINATION BP 145/65 Pulse 78 Ht 166.4 cm (5' 5.5") Wt 61.2 kg (135 lb) BMI 22.12 kg/m? General: Well-developed, well-nourished, in no acute distress. HEENT: Normocephalic, atraumatic. Lungs: No respiratory distress. Neurological: Awake, alert, oriented to person, place, and time. Speech fluent, no dysarthria. Good attention and insight into illness. Cranial Nerves: Pupils equal, extraocular movements intact without nyst (more content not included)... [facility] 06-03-2025 Telephone encounter Note Name of caller: Manuel Contact phone number: [phone] Relationship to Patient: Self Provider: Practice: [facility] Chief Complaint/Reason for Call: Pt is having many concerns as she was told that she followed up with wrong doctor to go over scans and needs to have a referral and schedule for Neurology . Pt is trying to go on a trip by car and is leaving June 18 but needs to know if she is allowed to travel as the appt is pushed out and needs to cancel to get any of the money back if she can't go please advise Best time of day caller can be reached: any Patient advised that office/PCP has 24-48 business hours to return their call: No [facility] 06-03-2025 Miscellaneous Notes Name of caller: Manuel Contact phone number: [phone] Relationship to Patient: Self Provider: Practice: [facility] Chief Complaint/Reason for Call: Pt is having many concerns as she was told that she followed up with wrong doctor to go over scans and needs to have a referral and schedule for Neurology . Pt is trying to go on a trip by car and is leaving June 18 but needs to know if she is allowed to travel as the appt is pushed out and needs to cancel to get any of the money back if she can't go please advise Best time of day caller can be reached: any Patient advised that office/PCP has 24-48 business hours to return their call: No documented in this encounter [facility] 06-02-2025 Note HNO ID: [id number] Author: RADHA BOTELLO MD Service: ? 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 She had her workup done at [facility] including imaging. 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 angiographic images of the intracranial circulation. It was done after she had some hearing loss after being at a parade. She still feels as if her R ear is closed. We discussed that as this is intracranial, this would be more NIL/neurosurgery issue than vascular surgery. Consult placed. Questions answered as far as pertained to my scope. HISTORIES: PAST MEDICAL HISTORY Diagnosis Date Anxiety Diverticulosis Hypertension Insomnia, unspecified type History reviewed. No pertinent surgical history. SOCIAL HISTORY[1]MEDICATIONS: Current Outpatient Medications Medication Sig ALPRAZolam ER (XANAX XR) 0.5 mg 24 hr tablet Take 0.5 mg by mouth daily at bedtime. Take 1 tablet (0.5mg) by mouth nightly as needed for sleep (use nightly as needed for sleep) for up to 15 doses Cholecalciferol, Vitamin D3, 50 mcg (2,000 unit) cap Take 2,000 Units by mouth once daily. Lecithin 1,200 mg cap Take 1,200 mg by mouth once daily. magnesium citrate solution turmeric 400 mg cap Take 400 mg by mouth once daily. No current facility-administered medications for this visit. ALLERGIES:ALLERGIES Not on File REVIEW OF SYSTEMS: All other ROS: negative PHYSICAL EXAM: General appearance: Normal, healthy, well nourished, alert and cooperative individual, in no acute distress. Skin: No lesions, rashes or ulcerations; normal color and turgor. Pulmonary: No wheezing or rhonchi. Breathing unlabored on RA Upper Extremities: Normal exam of the upper extremities. No clubbing, cyanosis, or edema. Neuro: Awake, alert, and oriented., Gait normal. Sensation grossly intact., CN II-XII grossly intact. 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 [1] Social History Tobacco Use Smoking status: Former Current packs/day: 0.00 Types: Cigarettes Quit date: 1974 Years since quittin.8 Smokeless tobacco: Never Vaping Use Vaping status: Never Used [facility] 05-18-2025 Telephone encounter Note Referral and records faxed [facility] 05-18-2025 Miscellaneous Notes Referral and records faxed Forward to [facility] to follow up Name of caller: Nancy Contact phone number: [phone] Relationship to Patient: [facility] Referral Department Provider: Dr. Kenney Practice: [facility] Chief Complaint/Reason for Call: Nancy called in requesting vascular referral and imaging results to be faxed to Dr. Radha George office. . Please Advise Best time of day caller can be reached: any Patient advised that office/PCP has 24-48 business hours to return their call: No documented in this encounter [facility] 05-18-2025 Telephone encounter Note Forward to [facility] to follow up [facility] 05-18-2025 Telephone encounter Note Name of caller: Nancy Contact phone number: [phone] Relationship to Patient: [facility] Referral Department Provider: Dr. Kenney Practice: [facility] Chief Complaint/Reason for Call: Nancy called in requesting vascular referral and imaging results to be faxed to Dr. Radha George office. . Please Advise Best time of day caller can be reached: any Patient advised that office/PCP has 24-48 business hours to return their call: No [facility] 02-22-2025 Telephone encounter Note Pt scheduled next available 07/13/25. [facility] 02-22-2025 Miscellaneous Notes Pt scheduled next available 07/13/25. Recent Visits Date Type Provider Dept 06/02/24 Office Visit Jefry Pak PA-C [facility] Showing recent visits within past 365 days and meeting all other requirements Future Appointments No visits were found meeting these conditions. Showing future appointments within next 90 days and meeting all other requirements Requested Prescriptions Pending Prescriptions Disp Refills ALPRAZolam (Xanax) 0.5 MG tablet 30 tablet 2 Sig: Take 1 tablet (0.5 mg) by mouth Nightly as needed for sleep (use nightly as needed for sleep). Provider: Jefry Pak PA-C Verified pharmacy: yes Verified day(s) supplied: yes Verified refill(s) needed (previous prescription showing no refills in chart): Yes Have you received any controlled medications from any other provider? No Overdue for visit: No If yes - patient scheduled? No Most recent labs completed in chart? N/A documented in this encounter [facility] 02-22-2025 Telephone encounter Note Recent Visits Date Type Provider Dept 06/02/24 Office Visit Jefry Pak PA-C [facility] Showing recent visits within past 365 days and meeting all other requirements Future Appointments No visits were found meeting these conditions. Showing future appointments within next 90 days and meeting all other requirements Requested Prescriptions Pending Prescriptions Disp Refills ALPRAZolam (Xanax) 0.5 MG tablet 30 tablet 2 Sig: Take 1 tablet (0.5 mg) by mouth Nightly as needed for sleep (use nightly as needed for sleep). Provider: Jefry Pak PA-C Verified pharmacy: yes Verified day(s) supplied: yes Verified refill(s) needed (previous prescription showing no refills in chart): Yes Have you received any controlled medications from any other provider? No Overdue for visit: No If yes - patient scheduled? No Most recent labs completed in chart? N/A [facility] 08-10-2024 Note Pt calling due to no improvement of neck pain during movement after trial of home exercises. Pt requesting MRI to be ordered for further evaluation. Please advise. Thank you! [facility] 07-13-2024 History of Present illness Narrative [facility] - [address] [place] [address] Dept: [phone] Dept Manuel Ugalde Andria 1955 [id number] 07/13/2024 Problem List: Axial neck pain Cervical degenerative disc disease Cervical spondylosis Spondylolisthesis C4-C5 (M54.2) Neck pain on left side (M50.30) DDD (degenerative disc disease), cervical (M47.812) Cervical spondylosis (M43.12) Spondylolisthesis of cervical region Chief Complaint Patient presents with New Patient HPI: Manuel is a 68 y.o. female who is here today for evaluation of her cervical spine. Manuel is referred by Sofi Luna APRN - * Current symptoms: Pain is located in the left neck with radiation to base of the head . Numbness tingling: yes - left arm- if she lays on right side (has only happened last night) Weakness: denies Symptoms are moderate to severely affecting their quality of life. Inciting Event/Trauma: No specific cause Duration of Symptoms: 4 month(s) Associated neurologic complaints/Red flags: Gait/balance difficulty: denies Use of ambulatory aid?: no device Able to walk a city block: Yes Bowel/bladder incontinence: denies Urinary retention: No Saddle anesthesia: No Fine motor task difficulty/dropping things/handwriting changes: denies History of cancer: Yes -squamous on foot Aggravating factors: Cervical ROM- turning to the right With mouth open -certain positions difficulty turning Alleviating Factors: nothing Previous Treatment: PT: No NSAIDS: n/a Injections: No Opioid medications: n/a Muscle relaxers: n/a Oral steroids: n/a Nerve medications (gabapentin/Lyrica): n/a Pain management: No Chiropractor: No Previous spine surgery: No History of DVT/PE or hypercoagulable state (including history of relative): No Blood thinning medications: Work Status: Retired Is this a work related injury? No Review of Systems Tobacco Use: Medium Risk (06/02/2024) Patient History Smoking Tobacco Use: Former Smokeless Tobacco Use: Never Passive Exposure: Not on file No results found for: "HGBA1C" Allergies Allergen Reactions Clarithromycin Other reaction(s): Other (See Comments), Other (See Comments) ABD cramps Current Outpatient Medications Medication Sig Dispense Refill ALPRAZolam (Xanax) 0.5 MG tablet Take 1 tablet (0.5 mg) by mouth Nightly as needed for sleep (use nightly as needed for sleep). 30 tablet 2 cholecalciferol (Vitamin D-3) 50 MCG (2000 UT) capsule Take 2,000 Units by mouth daily. Lecithin 1200 MG capsule Take 1,200 mg by mouth daily. magnesium citrate solution Take by mouth. Turmeric 400 MG capsule Take by mouth. escitalopram (Lexapro) 5 MG tablet Take 1 tablet (5 mg) by mouth daily. 30 tablet 2 No current facility-administered medications for this visit. Past Medical History: Diagnosis Date Arthritis of right hip 2008 s/p THR 01/05 per [facility] Breast cancer screening 07/2023 Dr. Howard YEN 09/2023 Diverticulosis 2017 mild per C scope Essential hypertension 2011 Family history of diabetes mellitus father Family history of malignant neoplasm of breast mother age 40 Family history of other specified malignant neoplasm Mother- past eval [facility] [place] Former smoker Generalized anxiety disorder 2015 beta salazar rx in past H/O colonoscopy 09/2021 Turowski- IBS- hemorrhoids-/ Maurice- mod divert ds due 2031 Menopause [address] Frederick SCC (squamous cell carcinoma), foot 2005 L Heel- yearly eval per Dr. Huertas Past Surgical History: Procedure Laterality Date APPENDECTOMY 1967 COLONOSCOPY 09/2021 Dr. Richards- int hem, mod divert ds- due [address] Villafuerte COLONOSCOPY 2012 Dr. Ruiz ENDOMETRIAL ABLATION 2009 Howard TOTAL HIP ARTHROPLASTY Right 12/2020 [facility] Social History Socioeconomic History Marital status: Spouse name: Not on file Number of children: Not on file Years of education: Not on file Highest education level: Not on file Occupational History Not on file Tobacco Use Smoking status: Former Current packs/day: 0.00 Average packs/day: 0.3 packs/day for 1 year (0.3 ttl pk-yrs) Types: Cigarettes Start date: 08/18/1973 Quit date: 08/18/1974 Years since quittin.9 Smokeless tobacco: Never Tobacco comments: Quit smoking: QUIT IN HIGH SCHOOL Vaping Use Vaping status: Never Used Substance and Sexual Activity Alcohol use: Yes Alcohol/week: 0.0 standard drinks of alcohol Drug use: No Sexual activity: Not Currently Other Topics Concern Not on file Social History Narrative to [place], no children. 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 Previous worked for [employer] Social Drivers of Health Financial Resource Strain: Low Risk (12/10/2023) Overall Financial Resource Strain (CARDIA) Difficulty of Paying Living Expenses: Not hard at all Food Insecurity: No Food Insecurity (12/10/2023) Hunger Vital Sign Worried About Running Out of Food in the Last Year: Never true Ran Out of Food in the Last Year: Never true Transportation Needs: No Transportation Needs (12/10/2023) PRAPARE - Transportation Lack of Transportation (Medical): No Lack of Transportation (Non-Medical): No Physical Activity: Sufficiently Active (12/10/2023) Exercise Vital Sign Days of Exercise per Week: 7 days Minutes of Exercise per Session: 150+ min Stress: No Stress Concern Present (12/10/2023) [employer] - Occupational Stress Questionnaire Feeling of Stress : Not at all Social Connections: Socially Integrated (12/10/2023) Social Connection and Isolation Panel [NHANES] Frequency of Communication with Friends and Family: More than three times a week Frequency of Social Gatherings with Friends and Family: Twice a week Attends Judaism Services: More than 4 times per year Active Member of Clubs or Organizations: Yes Attends Club or Organization Meetings: 1 to 4 times per year Marital Status: Intimate Partner Violence: Not At Risk (12/10/2023) Humiliation, Afraid, Rape, and Kick questionnaire Fear of Current or Ex-Partner: No Emotionally Abused: No Physically Abused: No Sexually Abused: No Housing Stability: Unknown (12/10/2023) Housing Stability Vital Sign Unable to Pay for Housing in the Last Year: No Number of Places Lived in the Last Year: Not on file Unstable Housing in the Last Year: No Family History Problem Relation Name Age of Onset Other (97007) Sister Pat carotid ds, Heart disease Brother layo 2015, age 69, COPD, DM and Cancer Mother Ariadne 82 yrs, met Aditi sparks [place] in early 40's Cancer Father Oma pancreatic [place], DM late 70s No Known Problems Sister Amisha PHYSICAL EXAM Ht 5' 5.5" (1.664 m) Wt 140 lb (63.5 kg) BMI 22.94 kg/m SPINE/EXTREMITY: General: Patient is in no apparent distress. Gait is nonantalgic, nonassisted. She is able to toe walk, heel walk, and tandem gait. Moderate tenderness to palpation of left side of neck. Upper Extremity Motor: Del Bi Tri WE WF Int FF Right 5 5 5 5 5 5 5 Left 5 5 5 5 5 5 5 Lower Extremity Motor: HF Q TA EHL Peroneals GSC Right 5 5 5 5 5 5 Left 5 5 5 5 5 5 Upper extremity sensation to light touch: C5 C6 C7 C8 T1 Right Intact Intact Intact Intact Intact Left Intact Intact Intact Intact Intact Lower extremity sensation to light touch: L2 L3 L4 L5 S1 Right Intact Intact Intact Intact Intact Left Intact Intact Intact Intact Intact Upper extremity reflexes: Bicep Tricep Brachioradialis Right 2+ 2+ 2+ Left 2+ 2+ 2+ Lower extremity reflexes: Patellar Achilles Right 2+ 2+ Left 2+ 2+ Misc: Kirkpatrick Spurling Clonus Right Negative Negative None Left Negative Negative None Rhomberg Negative Lhermitte's Sign Negative IMAGING Cervical Spine: Date of Exam: 07/13/24 Views: Cervical 4V xrays (AP/LAT/FLEX/EXT) Findings: There is no carotid artery calcifications noted. No abnormal pre-vertebral swelling. No obvious fracture. Anterolisthesis noted at C4-C5. No congenital stenosis. Maintenance of normal cervical lordosis noted. Mild to moderate multi-level degenerative disc disease noted. There are mild spondylitic changes and facet arthropathy noted. NCT/EMG (Copied Impression) Date: none DEXA Date: ASSESSMENT See problem list above. Manuel is a 68 y.o. female presenting with axial neck pain. The patient reports her symptoms started approximately 4 months ago without causative incident. She describes her pain as a sharp, severe achiness on the left side of her neck though at times radiate up into her head and down into the left shoulder. She had 1 instance of left arm numbness and attributes this to the position she was sleeping in. She denies having any constant upper extremity radicular symptoms. She also denies having any lower extremity radicular symptoms, loss of bowel or bladder function, saddle paresthesia, worsening balance, worsening hand dexterity or hand strength issues, or significant symptoms of neurogenic claudication. I had a discussion with Manuel Ayers about her symptoms. We independently reviewed her imaging from today which revealed mild to moderate degenerative disc disease, mild cervical spondylosis, spondylolisthesis C4-C5. The patient has symptoms of cervical spondylosis. We talked about this being a problem that is axial in nature. It is treated conservatively with medications, injections, exercise, director of home care hospice, and physical therapy. We talked about how surgery did not have favorable results when treating isolated axial neck pain and that surgery was generally best indicate for nerve or spinal cord compression. We discussed the symptoms of cervical myelopathy and cervical radiculopathy to watch out for for. The patient seems to understand their diagnosis as well as the treatment options. All questions were answered to the best of my ability. The patient has not tried physical therapy for this. She has also not tried any medications to help with her pain symptoms. We discussed possibly trying a prescription strength anti-inflammatory, muscle relaxer, or steroids and she politely declined these at this time. I did encourage her to try [id number] Aleve or ibuprofen to see if this helps with her pain symptoms. She is also willing to try a home exercise program to see if this helps with her symptoms. She has no improvement in her symptoms after trying the medication and a home exercise program I would be happy to see her back to discuss possibly ordering a cervical spine MRI without contrast to evaluate for nerve compression. IMPRESSION I had a long discussion with Manuel to make sure she had a good understanding of what I think the main issues and diagnoses are that are affecting her today, and reviewed the plan going forward. PLAN: HEP: cervical/periscapular Medication(s): None Patient also advised to try OTC tylenol and NSAIDs if not contraindicated Imaging: none Follow up prn Electronically signed by LUCILLE Cameron CNP 07/13/2024 at 10:58 AM Dictated using Wallerius Version 2.4 Proof read however unrecognized voice recognition errors may have occurred documented in this encounter [facility] 07-13-2024 Instructions Shaina Ackerman - 07/13/2024 9:30 AM EST Images from the original note were not included. documented in this encounter [facility] 07-07-2024 Telephone encounter Note Order faxed to [facility] 07-07-2024 Miscellaneous Notes Order faxed to [facility] Name of caller: Manuel Contact phone number: [phone] Relationship to Patient: patient Provider: Dr. Logan Practice: [facility] Chief Complaint/Reason for Call: Patient requesting for her mammogram order to be sent to [facility]. Patient did not have fax number. Patient also states she was supposed to get a refund of 259.79 for lab tests that were billed incorrectly. States state patrol officer was supposed to be taking care of and has not heard anything back yet. Please advise. Best time of day caller can be reached: any Patient advised that office/PCP has 24-48 business hours to return their call: Yes documented in this encounter [facility] 07-07-2024 Telephone encounter Note Name of caller: Manuel Contact phone number: [phone] Relationship to Patient: patient Provider: Dr. Logan Practice: [facility] Chief Complaint/Reason for Call: Patient requesting for her mammogram order to be sent to [facility]. Patient did not have fax number. Patient also states she was supposed to get a refund of 259.79 for lab tests that were billed incorrectly. States state patrol officer was supposed to be taking care of and has not heard anything back yet. Please advise. Best time of day caller can be reached: any Patient advised that office/PCP has 24-48 business hours to return their call: Yes [facility] 06-02-2024 Evaluation + Plan note Associated Problem(s): Anxiety - Chronic and unstable multifactorial patient is requesting longer use of Xanax to primarily use at night to help with sleeping discussed the use of daily Lexapro she is agreeable to try. [facility] 06-02-2024 Miscellaneous Notes Associated Problem(s): Anxiety - Chronic and unstable multifactorial patient is requesting longer use of Xanax to primarily use at night to help with sleeping discussed the use of daily Lexapro she is agreeable to try. documented in this encounter [facility] 06-02-2024 History of Present illness Narrative Images from the original note were not included. [facility] - [address] [facility] [address] Dept: [phone] Dept Loc: [phone] Visit type: Established Patient Reason for Visit: Hypertension (High readings ) and Flu Vaccine (Patient has declined to receive influenza vaccine in the office. /) Assessment and Plan 1. Anxiety Assessment & Plan: - Chronic and unstable multifactorial patient is requesting longer use of Xanax to primarily use at night to help with sleeping discussed the use of daily Lexapro she is agreeable to try. Orders: - escitalopram (Lexapro) 5 MG tablet; Take 1 tablet (5 mg) by mouth daily., Starting Fri06/02/2024, Until Fri08/31/2024, Normal - ALPRAZolam (Xanax) 0.5 MG tablet; Take 1 tablet (0.5 mg) by mouth Nightly as needed for sleep (use nightly as needed for sleep)., Starting Fri06/02/2024, Until Fri08/31/2024 at 2359, Normal 2. Insomnia, unspecified type - ALPRAZolam (Xanax) 0.5 MG tablet; Take 1 tablet (0.5 mg) by mouth Nightly as needed for sleep (use nightly as needed for sleep)., Starting Fri06/02/2024, Until Fri08/31/2024 at 2359, Normal 3. Breast cancer screening by mammogram - Bilateral screening mammogram with tomosynthesis Follow up in about 6 months (around 12/01/2024), or annual exam for medicare annual in november, for Next scheduled follow-up, Recheck. Subjective HPI this is a 68-year-old female with a history of anxiety, hypertension and diverticulosis who was last seen for her Medicare annual wellness in November of this year. She returns back to the office to discuss concerns associated with her blood pressure. Was out to see her orthopedist for hip pain issues and blood pressure was elevated Last visit was elevated, but having persistent elevated blood pressure systolic with 140s-150s Recheck BP both arms and 128/76 and 130/72 left and right. Patient readily admits she is extremely anxious she is having difficult time sleeping she states a lot of the issues in the world keep her up and bother her which causes increased anxiety even with the election. However in talking her I did check both arms her blood pressure and seems to be relatively normal here and certainly not in the point of treating at this point time I think her depression and her anxiety and insomnia need more aggressively treated we talked about this in the past she has tried trazodone which really never helped. She does state that Xanax seems to help her immensely and helps her fall asleep. OARRS report was reviewed and appropriate. At this point time we discussed starting her on low-dose Lexapro and extending her Xanax she was comfortable with this plan.\\ Patient also is discussing concern that she needs a mammogram order states it has been sometime since she has had her mammogram she denies any issues or concerns at this point time she has any lumps or bumps or abnormalities of the breast but is requesting to have an annual mammogram. Last time she had it was June of last year she cannot have it until another year has gone by. She will call in the next month or so once the annual requirement is up to get it rescheduled. She prefers to have it done at [place]. Review of Systems Constitutional: Negative for chills and fever. HENT: Negative for congestion and sore throat. Respiratory: Negative for cough and shortness of breath. Cardiovascular: Negative for chest pain. Gastrointestinal: Negative for abdominal pain, diarrhea, nausea and vomiting. Genitourinary: Negative for difficulty urinating, dysuria, frequency and urgency. Musculoskeletal: Negative for back pain. Neurological: Negative for dizziness and light-headedness. Psychiatric/Behavioral: Positive for sleep disturbance. The patient is nervous/anxious. All other systems reviewed and are negative. Allergies Allergen Reactions Clarithromycin Other reaction(s): Other (See Comments), Other (See Comments) ABD cramps Outpatient Medications Prior to Visit Medication Sig Dispense Refill cholecalciferol (Vitamin D-3) 50 MCG (2000 UT) capsule Take 2,000 Units by mouth daily. Lecithin 1200 MG capsule Take 1,200 mg by mouth daily. magnesium citrate solution Take by mouth. Turmeric 400 MG capsule Take by mouth. ALPRAZolam (Xanax) 0.5 MG tablet Take 1 tablet (0.5 mg) by mouth Nightly as needed for sleep (use nightly as needed for sleep) for up to 15 days. 15 tablet 0 glucosamine-chondroitin 500-400 MG tablet Take 1 tablet by mouth 3 times daily. Shingrix 50 MCG/0.5ML vaccine traZODone (Desyrel) 50 MG tablet Take 1 tablet (50 mg) by mouth Nightly as needed for sleep. 30 tablet 2 No facility-administered medications prior to visit. Past Medical History: Diagnosis Date Arthritis of right hip 2008 [facility] cancer screening 07/2023 Dr. Frederick COVID 09/2023 Diverticulosis 2017 mild per C scope Essential hypertension 2010 Family history of diabetes mellitus father Family history of malignant neoplasm of breast mother age 40 Family history of other specified malignant neoplasm Mother- past eval [facility] [place] Former smoker Generalized anxiety disorder 2015 beta salazar rx in past H/O colonoscopy 09/2021 [place]- IBS- hemorrhoids-/ Maurice- mod divert ds due 2031 Menopause [address] Frederick SCC (squamous cell carcinoma), foot 2005 L Heel- yearly eval per Dr. Huertas Social History Tobacco Use Smoking status: Former Current packs/day: 0.00 Average packs/day: 0.3 packs/day for 1 year (0.3 ttl pk-yrs) Types: Cigarettes Start date: 08/18/1973 Quit date: 08/18/1974 Years since quittin.8 Smokeless tobacco: Never Tobacco comments: Quit smoking: QUIT IN HIGH SCHOOL Substance Use Topics Alcohol use: Yes Alcohol/week: 0.0 standard drinks of alcohol Past Surgical History: Procedure Laterality Date APPENDECTOMY 1967 COLONOSCOPY 09/2021 Dr. Richards- int hem, mod divert ds- due [address] Villafuerte COLONOSCOPY 2011 Dr. Ruiz ENDOMETRIAL ABLATION 2009 [place] TOTAL HIP ARTHROPLASTY Right 12/2020 [facility] Family History Problem Relation Name Age of Onset Other ([address]) Sister Pat carotid ds, Heart disease Brother layo 2016, age 69, COPD, DM and Cancer Mother Ariadne 82 yrs, met melenoma, Br CA in early 40's Cancer Father Oma pancreatic CA, DM late 70s No Known Problems Sister Amisha Objective BP 126/78 (BP Location: Left arm, Patient Position: Sitting, BP Cuff Size: Adult) Pulse 86 Temp 36.6 C (97.9 F) (Temporal) Ht 5' 5.5" (1.664 m) Wt 140 lb 9.6 oz (63.8 kg) SpO2 100% BMI 23.04 kg/m Physical Exam Vitals reviewed. Constitutional: General: She is not in acute distress. Appearance: Normal appearance. She is not ill-appearing or toxic-appearing. Eyes: General: No scleral icterus. Conjunctiva/sclera: Conjunctivae normal. Pupils: Pupils are equal, round, and reactive to light. Cardiovascular: Rate and Rhythm: Normal rate and regular rhythm. Heart sounds: Normal heart sounds. Pulmonary: Effort: Pulmonary effort is normal. No respiratory distress. Breath sounds: Normal breath sounds. Musculoskeletal: Cervical back: Normal range of motion and neck supple. Skin: General: Skin is warm and dry. Neurological: Mental Status: She is alert. Psychiatric: Mood and Affect: Mood normal. Data Reviewed and Summarized Labs: Imaging/Testing: Jefry Pak PA-C 06/02/2024 Please note that portions of this note may have been completed with voice recognition software. Documentation reviewed prior to signing but minor errors in him director may have occurred. documented in this encounter [facility] 06-01-2024 Telephone encounter Note S: Patient spoke with CAC nurse regarding elevated blood pressure readings. B: Onset of symptoms/concern 05/21/24 Last OV 12/10/23 A: C/O high blood pressure readings. Reports during Orthopedic visit on 05/21/24 was informed she had elevated reading (152/78). Reports reading 154/? And 176/93 today. Avg of 154-167/80's . Reports she is not prescribed antihypertension medication. Admits to anxiety otherwise does not have any symptoms or feeling of high blood pressure. Denies any headaches, change in vision, one side weakness or numbness, change in speech, chest pain or shortness of breath. R: Appointment scheduled for 06/02/24 at 9 am with ASLEEM Gu. No available appointment with PCP. Insurance verified with patient as Medicare, Patient denies the following: any signs or symptoms of Covid, exposure to Covid in the last 5 days, or having tested positive for Covid in the last five days. Advised how to test blood pressure, keep recordings, when to call back and lifestyle modifications. Patient instructed to call back with new or worsening symptoms. Patient understands care advice. Reason for Disposition Systolic BP >= 160 OR Diastolic >= 100 Protocols used: Blood Pressure - [id number] [facility] 06-01-2024 Miscellaneous Notes S: Patient spoke with [facility] nurse regarding elevated blood pressure readings. B: Onset of symptoms/concern 05/21/24 Last OV 12/10/23 A: C/O high blood pressure readings. Reports during Orthopedic visit on 05/21/24 was informed she had elevated reading (152/78). Reports reading 154/? And 176/93 today. Avg of 154-167/80's . Reports she is not prescribed antihypertension medication. Admits to anxiety otherwise does not have any symptoms or feeling of high blood pressure. Denies any headaches, change in vision, one side weakness or numbness, change in speech, chest pain or shortness of breath. R: Appointment scheduled for 06/02/24 at 9 am with SALEEM Gu. No available appointment with PCP. Insurance verified with patient as Medicare, Patient denies the following: any signs or symptoms of Covid, exposure to Covid in the last 5 days, or having tested positive for Covid in the last five days. Advised how to test blood pressure, keep recordings, when to call back and lifestyle modifications. Patient instructed to call back with new or worsening symptoms. Patient understands care advice. Reason for Disposition Systolic BP >= 160 OR Diastolic >= 100 Protocols used: Blood Pressure - [id number] documented in this encounter [facility] 05-21-2024 History of Present illness Narrative Images from the original note were not included. [facility] - [place] [address] [place] [address] [place] [id number] Dept: [phone] Dept 05/21/2024 Chief Complaint Patient presents with New Patient R JESSICA DOS 01/09/2021 Subjective: Manuel is approximately 3.5 years out from a Right total hip arthroplasty. Pain is absent. Manuel reports no pain, however, feels that her right replacement may be loosening. Assistive device for ambulation:none. Pre-operative symptoms are significantly improved. Manuel denies calf pain. Review of Systems Constitutional: Negative for activity change. HENT: Negative for congestion. Cardiovascular: Negative for leg swelling. Musculoskeletal: Positive for arthralgias, gait problem and joint swelling. Skin: Negative for wound. Neurological: Negative for weakness. Objective: BP (!) 152/78 Ht 5' 5" (1.651 m) Wt 138 lb (62.6 kg) BMI 22.96 kg/m Ortho Exam Manuel looks well today and non-toxic. Incision is well-healed. Skin otherwise is warm, dry and intact. Edema is mild. Hip ROM is smooth and non-tender with no signs or symptoms of instability. Greater troch is very tender to touch. Flexion/IR is 90/30. Manuel remains neuro intact to the Right leg. Gait is normal. No evidence of DVT seen on physical exam.. Single leg stance shows strongabductors. XRAYS: I have personally reviewed the images obtained today at [facility] Indication: status post Right total hip arthroplasty Exam Ordered: Radiographs taken today include an anteroposterior pelvis, an AP and lateral view of the left proximal femur including the hip joint Details of Examination: Today's exam show a well fixed, well positioned total hip arthroplasty with no evidence of wear, osteolysis, or loosening. Impression: Status post Right total hip arthroplasty, implant in good position with no abnormality Assessment 1. Neck pain on left side 2. Status post right hip replacement 3. Primary osteoarthritis of right hip Plan Manuel is here today complaining of right hip pain. She explains it as "discomfort" but wanted to make sure everything was okay before she went on her hiking trip. She will continue with WBAT and activity as tolerated. At this point I feel the patient has a diagnosis of Right trochanteric bursitis. We discussed all the treatment options including but not limited to, the use of non-steroidal anti-inflammatory drugs (NSAIDs), physical therapy visits for stretching/strengthening and modalities treatment, as well as a consistent stretching program at home. We further discussed the role of corticosteroid injections into the trochanteric bursa. I explained that this is a short-term solution, however it does often allow for return to physical therapy and stretching and the ability to alleviate the acute pain. She is not interested in a cortisone injection today. The patient was instructed to follow-up a the 5 year anniversary with xray of the hip unless symptoms develop I can see the patient sooner. She complains of left neck pain causing shooting pain up into her head daily. I told her that I would give her a referral to see our spine team when she was ready. Electronically signed by LUCILLE Mendes CNP . 05/21/2024 at 9:48 AM. Dictated using Wallerius Version 2.4 Proof read however unrecognized voice recognition errors may have occurred documented in this encounter [facility] 12-10-2023 Evaluation + Plan note Associated Problem(s): Insomnia - Chronic and unstable discussed the use of Benadryl patient would like to try trazodone also discussed previous use of Xanax OARRS report reviewed and appropriate she has not been prescribed Xanax for over a year. Patient is agreeable to try Xanax intermittently on an as-needed basis for severe insomnia. [facility] 12-10-2023 Miscellaneous Notes Associated Problem(s): Insomnia - Chronic and unstable discussed the use of Benadryl patient would like to try trazodone also discussed previous use of Xanax OARRS report reviewed and appropriate she has not been prescribed Xanax for over a year. Patient is agreeable to try Xanax intermittently on an as-needed basis for severe insomnia. documented in this encounter [facility] 12-10-2023 History of Present illness Narrative Images from the original note were not included. [facility] [address] [place] [address] [address] [facility] [address] Dept: [phone] Dept Chief Complaint: Manuel Ayers is an 68 y.o. female here for an annual wellness visit. Assessment/Plan : Problem List Items Addressed This Visit Insomnia - Chronic and unstable discussed the use of Benadryl patient would like to try trazodone also discussed previous use of Xanax OARRS report reviewed and appropriate she has not been prescribed Xanax for over a year. Patient is agreeable to try Xanax intermittently on an as-needed basis for severe insomnia. Relevant Medications traZODone (Desyrel) 50 MG tablet ALPRAZolam (Xanax) 0.5 MG tablet Other Visit Diagnoses Routine general medical examination at health care facility - Primary Screening for lipid disorders Relevant Orders Lipid panel Screening for diabetes mellitus Relevant Orders Comprehensive metabolic panel Elevated blood pressure reading without diagnosis of hypertension I have reviewed and reconciled the medication list with the patient today. Current Outpatient Medications Medication Sig Dispense Refill cholecalciferol (Vitamin D-3) 50 MCG (2000 UT) capsule Take 2,000 Units by mouth daily. Lecithin 1200 MG capsule Take 1,200 mg by mouth daily. Turmeric 400 MG capsule Take by mouth. ALPRAZolam (Xanax) 0.5 MG tablet Take 1 tablet (0.5 mg) by mouth Nightly as needed for sleep (use nightly as needed for sleep) for up to 15 days. 15 tablet 0 glucosamine-chondroitin 500-400 MG tablet Take 1 tablet by mouth 3 times daily. Shingrix 50 MCG/0.5ML vaccine traZODone (Desyrel) 50 MG tablet Take 1 tablet (50 mg) by mouth Nightly as needed for sleep. 30 tablet 2 No current facility-administered medications for this visit. Also reviewed during this visit: The following health maintenance schedule was reviewed with the patient and provided in printed form in the after visit summary: Health Maintenance Topic Date Due Lipid Panel Never done Bone Density Scan Never done Derm Melanoma Skin Check Never done Hepatitis C Screening Never done DTaP/Tdap/Td Vaccines (1 - Tdap) Never done RSV Immunization aged 60 or older (1 - 1-dose 60+ series) Never done Pneumococcal Vaccine: 65+ Years (2 of 2 - PCV) 09/12/2022 COVID-19 Vaccine (6 - season) 2023 Influenza Vaccine (Season Ended) 2024 Mammogram 08/01/2024 Depression Screening 12/09/2024 Medicare Annual Wellness (AWV) 01/08/2025 Colorectal Cancer Screening 10/04/2031 Zoster Vaccines Completed RSV Immunization under 20 Months Aged Out HIB Vaccines Aged Out Hepatitis B Vaccines Aged Out IPV Vaccines Aged Out Hepatitis A Vaccines Aged Out Meningococcal Vaccine Aged Out Rotavirus Vaccines Aged Out HPV Vaccines Aged Out List of current healthcare providers: Patient Care Team: Damon Logan DO as PCP - General Orders Placed This Encounter Procedures Lipid panel Standing Status: Future Number of Occurrences: 1 Standing Expiration Date: 12/09/2024 Order Specific Question: Has the patient been fasting for 8 hours or more? Answer: Yes Comprehensive metabolic panel Standing Status: Future Number of Occurrences: 1 Standing Expiration Date: 12/09/2024 Review of Systems Constitutional: Negative for chills and fever. HENT: Negative for congestion and sore throat. Respiratory: Negative for cough and shortness of breath. Cardiovascular: Negative for chest pain. Gastrointestinal: Negative for abdominal pain, diarrhea, nausea and vomiting. Genitourinary: Negative for difficulty urinating, dysuria, frequency and urgency. Musculoskeletal: Negative for back pain. Neurological: Negative for dizziness and light-headedness. Psychiatric/Behavioral: Positive for sleep disturbance (was on xanax in past.). All other systems reviewed and are negative. Physical Exam Vitals reviewed. Constitutional: General: She is not in acute distress. Appearance: Normal appearance. She is not ill-appearing or toxic-appearing. HENT: Right Ear: Tympanic membrane and ear canal normal. Left Ear: Tympanic membrane and ear canal normal. Mouth/Throat: Mouth: Mucous membranes are moist. Pharynx: No oropharyngeal exudate or posterior oropharyngeal erythema. Eyes: General: No scleral icterus. Conjunctiva/sclera: Conjunctivae normal. Pupils: Pupils are equal, round, and reactive to light. Neck: Vascular: No carotid bruit. Cardiovascular: Rate and Rhythm: Normal rate and regular rhythm. Heart sounds: Normal heart sounds. Pulmonary: Effort: Pulmonary effort is normal. No respiratory distress. Breath sounds: Normal breath sounds. Abdominal: General: Bowel sounds are normal. There is no distension. Palpations: Abdomen is soft. There is no mass. Tenderness: There is no abdominal tenderness. There is no guarding. Hernia: No hernia is present. Musculoskeletal: Cervical back: Normal range of motion and neck supple. No rigidity or tenderness. Right lower leg: No edema. Left lower leg: No edema. Lymphadenopathy: Cervical: No cervical adenopathy. Skin: General: Skin is warm and dry. Coloration: Skin is not jaundiced or pale. Neurological: Mental Status: She is alert. Psychiatric: Mood and Affect: Mood normal. Objective : BP (!) 146/80 (BP Location: Right arm, Patient Position: Sitting, BP Cuff Size: Adult) Pulse 69 Temp 36.1 C (97 F) (Temporal) Ht 5' 5.5" (1.664 m) Wt 138 lb (62.6 kg) SpO2 98% BMI 22.62 kg/m No results found. Subjective : This is a 68-year-old female with underlying history of anxiety disorder hypertension and diverticulosis who has not been seen in the office since August of last year. She presents to the office today for her annual wellness visit. Did suffer from covid this past September and suffered rebound covid, and had metallic taste in mouth. Health Risk Assessment: General: General In general, how would you say your health is?: Excellent In the past 7 days, have you experienced any of the following: New or Increased Pain, New or Increased Fatigue, Loneliness, Social Isolation, Stress or Anger?: No Do you get the social and emotional suppport you need?: Yes Health Habits/Nutrition: Health Habits / Nutrition On average, how many days per week do you engage in moderate to strenous exercise (like a brisk walk)?: 7 days On average, how man minutes do you engage in exercise at this level?: 150 + min Have you lost any weight without trying in the past 3 months? : No Have you seen the dentist within the past year?: Yes Hearing/ Vision: Hearing / Vision Do you or your family notice any trouble with your hearing that hasn't been managed with hearing aids?: No Do you have difficulty driving, watching TV, or doing any of your daily activities because of your eyesight?: No Have you had an eye exam within the past year?: Yes No results found. Safety: Safety Do you have a working smoke detector?: Yes Do you have any tripping hazards - loose or unsecured carpets or rugs?: No Do you have any tripping hazards - clutter in doorways, halls, or stairs?: No Do you have either shower bars, grab bars, non-slip mats or non-slip surfaces in your shower or bathtub? : (!) No Do all your stairways have a railing or banister? : Yes Do you fasten your seatbelt when you are in a car?: Yes Interventions: ADL: ADL In the past 7 days, did you need help from others to perform any of the following everyday activities: Eating, dressing, grooming,bathing, toileting, or walking / balance? : No In the past 7 days, did you need help from others to take care of any of the following: laundry, housekeeping, banking / finances,shopping, telephone use, food preparation, transportation, or taking medications? : No Living Will: Living Will Do you have a living will?: Yes Cognitive: Cognitive Screening: Mini-Cog Clock Drawing Test (CDT): 2 Words Recalled: 3 Total Score: 5 Total Score Interpretation: Normal Mini-Cog Fall Risk: Fall Risk One or more falls in the last year:: No Advised to use a cane or walker to get around safely:: No Feels unsteady when walking:: No Steadies self on furniture while walking at home:: No Worried about falling:: No Depression Screening: Over the past 2 weeks, how often have you been bothered by any of the following problems? Little interest or pleasure in doing things: Not at all Feeling down, depressed, or hopeless: Not at all Patient Health Questionnaire-2 Score: 0 Interventions: Tobacco Use: Social History Tobacco Use Smoking Status Former Packs/day: 0.25 Years: 1.00 Additional pack years: 0.00 Total pack years: 0.25 Types: Cigarettes Quit date: 08/18/1974 Years since quittin.3 Smokeless Tobacco Never Tobacco Comments Quit smoking: QUIT IN HIGH SCHOOL Alcohol Use: Audit Alcohol Screening Q1: How often do you have a drink containing alcohol?: 4 or more times a week Q2: How many drinks containing alcohol do you have on a typical day when you are drinking?: 3 or 4 Q3: How often do you have six or more drinks on one occasion?: Never Audit-C Score: 5 Skip to questions 9-10?: 0 Q4: How often during the last year have you found that you were not able to stop drinking once you had started?: Never Q5: How often during the last year have you failed to do what was normally expected from you because of drinking?: Never Q6: How often during the last year have you needed an alcoholic drink first thing in the morning to get yourself going after a night of heavy drinking?: Never Q7: How often during the last year have you had a feeling of guilt or remorse after drinking?: Never Q8: How often during the last year have you been unable to remember what happened the night before because you had been drinking?: Never Q9: Have you or someone else been injured as a result of your drinking?: No Q10: Has a relative, friend, doctor, or another health professional expressed concern about your drinking or suggested you cut down?: No Audit Total Score: 5 Interventions: documented in this encounter [facility] 12-10-2023 Instructions Jefry Pak PA-C - 12/10/2023 9:00 AM EDT Personalized Preventative Plan for Manuel Ayers - 12/10/2023 Medicare offers a range of preventative health benefits. Some of the tests and screenings are paid in full while others may be subject to a deductible, co-insurance, and / or copay. Some of these benefits include a comprehensive review of your medical history including lifestyle, illnesses that may run in your family, and various assessments and screenings as appropriate. After reviewing your medical record and screening and assessments performed today, your provider may have ordered immunizations, labs, imaging, and / or referrals for you. A list of these orders (if applicable) as well as your Preventative Care list are included within your After Visit Summary for your review. Other Preventative Recommendations: A preventive eye exam by an air traffic control specialist is recommended every 1-2 years to screen for glaucoma, cataracts, macular degeneration, and other eye disorders. A preventive dental visit is recommended every 6 months. Try to get at least 150 minutes of exercise per week or 10,000 steps per day on a pedometer. You need 1200-1500mg of calcium and [id number] international units of vitamin D per day. It is possible to meet your calcium requirement with diet alone, but a vitamin D supplement is usually necessary to meet this goal. When exposed to the sun, use a sunscreen that protects against both UVA and UVB radiation with an SPF of 30 or greater. Reapply every 2-3 hours or after sweating, drying off with a towel, or swimming. Always wear a seat belt when traveling in a car. Always wear a helmet when riding a bicycle or a motorcycle documented in this encounter [facility] 11-21-2023 Note Addended by: SOFI TAYLOR on: 11/21/2023 03:17 PM Modules accepted: Orders [facility] 11-21-2023 Note Addended by: SOFI TAYLOR on: 11/21/2023 03:17 PM Modules accepted: Orders [facility] 11-21-2023 Note Addended by: SOFI TAYLOR on: 11/21/2023 03:17 PM Modules accepted: Orders [facility] 11-21-2023 Telephone encounter Note Antibiotic sent to pharmacy. [facility] 11-21-2023 Miscellaneous Notes Addended by: SOFI LUNA on: 11/21/2023 03:17 PM Modules accepted: Orders Antibiotic sent to pharmacy. Addended by: CLIFF DONOVAN on: 11/21/2023 02:40 PM Modules accepted: Orders Please sign rx Patient called in stating she is having a dental cleaning on 12/01/23. She is asking if she will need an antibiotic prior to the appointment. She would like a call back to discuss. Please advise. done Please sign rx Name of Caller: Manuel Contact Reason: Manuel had JESSICA 01/04/21 and is calling to see if she still needs to be taking antibiotics before a dental cleaning / procedure. She has an apt on 10/02/22. She would like a call back. Office Name: Ortho documented in this encounter [facility] 11-21-2023 Note Addended by: CLIFF DONOVAN on: 11/21/2023 02:40 PM Modules accepted: Orders [facility] 11-21-2023 Note Addended by: CLIFF DONOVAN on: 11/21/2023 02:40 PM Modules accepted: Orders [facility] 11-21-2023 Note Addended by: CLIFF DONOVAN on: 11/21/2023 02:40 PM Modules accepted: Orders [facility] 11-21-2023 Telephone encounter Note Please sign rx [facility] 11-21-2023 Telephone encounter Note Patient called in stating she is having a dental cleaning on 12/01/23. She is asking if she will need an antibiotic prior to the appointment. She would like a call back to discuss. Please advise. [facility] 09-27-2022 Telephone encounter Note done [facility] 09-27-2022 Miscellaneous Notes done Please sign rx Name of Caller: Manuel Contact Reason: Manuel had JESSICA 01/04/21 and is calling to see if she still needs to be taking antibiotics before a dental cleaning / procedure. She has an apt on 10/02/22. She would like a call back. Office Name: Ortho documented in this encounter [facility] 09-27-2022 Telephone encounter Note Please sign rx [facility] 09-26-2022 Telephone encounter Note Referral pended for dx and doctor's signature [facility] 09-26-2022 Miscellaneous Notes Referral pended for dx and doctor's signature Message released to patient as written. Patient's further questions if applicable: Pt would like the referral placed for Dr Richards. Please place the referral. Were all questions from office addressed or relayed to the patient from encounter: Yes Placed call to patient. Unable to reach them by phone to discuss lab results. Left detailed message to return call to discuss results. ----- Message from Damon Logan DO sent at 09/22/2022 6:46 PM EST ----- All labs negative for any obvious infectious cause of her diarrhea. She has some type of colitis that needs addressed again with a gastroenterology consultation. Perhaps she is dealing with pancreatic insufficiency (NOT a cancer issue), or some other malabsorption syndrome. [facility] to post referral to Dr. Richards or an alternate senior technical manager she desires. documented in this encounter [facility] 09-26-2022 Telephone encounter Note Name of Caller: Manuel Contact Reason: Manuel had JESSICA 01/04/21 and is calling to see if she still needs to be taking antibiotics before a dental cleaning / procedure. She has an apt on 10/02/22. She would like a call back. Office Name: Ortho [facility] 09-26-2022 Telephone encounter Note Message released to patient as written. Patient's further questions if applicable: Pt would like the referral placed for Dr Richards. Please place the referral. Were all questions from office addressed or relayed to the patient from encounter: Yes [facility] 09-23-2022 Telephone encounter Note Placed call to patient. Unable to reach them by phone to discuss lab results. Left detailed message to return call to discuss results. [facility] 09-23-2022 Telephone encounter Note ----- Message from Damon Logan DO sent at 09/22/2022 6:46 PM EST ----- All labs negative for any obvious infectious cause of her diarrhea. She has some type of colitis that needs addressed again with a gastroenterology consultation. Perhaps she is dealing with pancreatic insufficiency (NOT a cancer issue), or some other malabsorption syndrome. [facility] to post referral to Dr. Richards or an alternate senior technical manager she desires. [facility] 09-17-2022 History of Present illness Narrative Images from the original note were not included. [address] [address] Visit type: Established Patient Reason for Visit: thinks IBS and Diarrhea Subjective: Patient ID: Manuel Ayers is a 67 y.o. female. HPI patient with history of moderately severe diverticulosis per colonoscopy for quite a while presents with almost a year of intermittent very explosive watery stools a few times each morning. Also passing some really mushy large stools at time. No melena or blood or mucus. No history of constipation. No recent antibiotics. She notes that this began after colonoscopy last year. Review of Systems no constitutional symptoms. Perhaps a low-grade fever and chills at times. But no recurrent fever. Denies headache or confusion. No chest pain or cough. No cardiopulmonary concerns. Had 1 episode of right upper quadrant abdominal pain weeks ago. But denies fatty food intolerance. History of lactose intolerance and does not ingest those products. No recent contacts. No recent travels or antibiotic use. No change in stress and worry. Allergies Allergen Reactions Clarithromycin Other reaction(s): Other (See Comments), Other (See Comments) ABD cramps Current Outpatient Medications on File Prior to Visit Medication Sig Dispense Refill cholecalciferol (Vitamin D-3) 50 MCG (2000 UT) capsule Take 2,000 Units by mouth daily. glucosamine-chondroitin 500-400 MG tablet Take 1 tablet by mouth 3 times daily. Lecithin 1200 MG capsule Take 1,200 mg by mouth daily. Turmeric 400 MG capsule Take by mouth. Shingrix 50 MCG/0.5ML vaccine No current facility-administered medications on file prior to visit. Patient Active Problem List Diagnosis Generalized anxiety disorder Arthritis of right hip Family history of diabetes mellitus RUBIO (generalized anxiety disorder) Family history of malignant neoplasm of breast Degenerative arthritis of hip SCC (squamous cell carcinoma), foot Essential hypertension Diverticulosis Diverticular disease of colon Social History Tobacco Use Smoking status: Former Packs/day: 0.25 Types: Cigarettes Quit date: 08/18/1974 Years since quittin.1 Smokeless tobacco: Never Tobacco comments: Quit smoking: QUIT IN HIGH SCHOOL Substance Use Topics Alcohol use: Yes Alcohol/week: 0.0 standard drinks Past Surgical History: Procedure Laterality Date APPENDECTOMY 1967 COLONOSCOPY 09/2021 Dr. Rihcards- int hem, mod divert ds- due 2031 COLONOSCOPY 08/2016 Turowski- due 5- 10 yrs COLONOSCOPY 2011 per Joseph ENDOMETRIAL ABLATION 2009 [place] TOTAL HIP ARTHROPLASTY Right 01/08/2021 [facility] Family History Problem Relation Name Age of Onset Other ([address]87) Sister Pat carotid ds, Heart disease Brother layo 2016, age 69, COPD, DM and Cancer Mother Ariadne 82 yrs, met melenoma, Br CA in early 40's Cancer Father Oma pancreatic CA, DM late 70s No Known Problems Sister Amisha Objective: BP 122/77 (BP Location: Right arm, Patient Position: Sitting, BP Cuff Size: Large adult) Pulse 89 Temp 36.5 C (97.7 F) (Temporal) Ht 5' 5.5" (1.664 m) Wt 131 lb (59.4 kg) SpO2 99% BMI 21.47 kg/m Physical Exam healthy-appearing. Well-hydrated. Normal oropharynx. Nonicteric. No adenopathy or thyroid masses. Heart is regular without gallops or murmurs. Lungs are clear. Abdomen very soft scaphoid nontender without masses pain hepatosplenomegaly or adenopathy. No ascites. Good bowel sounds. Extremities are pink without edema. Assessment / Plan: Manuel was seen today for thinks ibs and diarrhea. 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 Add Pepto-Bismol 2 tablets twice daily with Benefiber daily. Probable GI consultation documented in this encounter [facility] 01-09-2021 Note Reviewed discharge i nstructions with patient and her . Patient and verbalized understanding. Patient received walker, hip kit and meds from meds to beds prior to discharge. [facility] 01-08-2021 Note [facility] SH[facility] 1E MED SURG [address] [facility] [address] Dept: [phone] Loc: [phone] Adult Hip and Knee Reconstruction Service Patient Name: Manuel Ayers Date of : 1955 Date: 01/09/21 Discharge Summary Admit date: 01/08/2021 Discharge date and time: 01/09/2021 11:45 AM Admitting Physician: Mal Geiger MD Admission Diagnoses: right hip arthritis Discharge Diagnoses: same Operative Procedures: right total hip arthroplasty Indication for Admission: The patient has a history of the above diagnosis that has become progressively worse and the patient has elected to proceed with the above procedure. Hospital Course: The patient was admitted to the hospital on the day of surgery and underwent the above procedure. Post-operatively, the patient was transferred to the orthopaedic floor. They received prophylactic intravenous antibiotics. DVT prophylaxis included SCDs, early ambulation, and Aspirin was started the evening of surgery. The patient was able to tolerate a regular diet and their pain was reasonably well controlled. The patient progressed well throughout the hospitalization and was deemed stable for discharge on above listed date. Disposition: Stable Discharge Medications: Medication List START taking these medications aspirin 325 MG EC tablet Take 1 tablet by mouth 2 times daily Take 2 times a day with food for 30 days. This is for blood clot prevention. celecoxib 200 MG capsule Commonly known as: CeleBREX Take 1 capsule by mouth 2 times daily Take 2 times a day as needed for pain. docusate sodium 50 MG capsule Commonly known as: COLACE Take 2 capsules by mouth 2 times daily 2x daily as needed for constipation while on pain meds HYDROcodone-acetaminophen 5-325 MG per tablet Commonly known as: [place] Take 1-2 tablets by mouth every 4 hours as needed for Pain for up to 7 days. Take with food and stool softener. polyethylene glycol 17 g packet Commonly known as: MiraLax Take 17 g by mouth daily as needed for Constipation Take one packet a day as needed for constipation traMADol 50 MG tablet Commonly known as: Ultram Take 1 tablet by mouth every 6 hours as needed for Pain for up to 7 days. Take one tab every 6 hours as needed for pain CONTINUE taking these medications GLUCOSAMINE CHONDR COMPLEX PO Grape Seed Extract 100 MG Caps HAIR NOURISHING SUPPLEMENT PO LECITHIN PO niacin 500 MG extended release capsule Turmeric 400 MG Caps Vitamin D3 50 MCG (1999 PA) Caps Where to Get Your Medications These medications were sent to [address] - P [phone] - F [phone] [place] [id number] aspirin 325 MG EC tablet celecoxib 200 MG capsule docusate sodium 50 MG capsule HYDROcodone-acetaminophen 5-325 MG per tablet polyethylene glycol 17 g packet traMADol 50 MG tablet Patient Instructions: The patient will notify me for any increased bleeding, drainage, or progressively worsening pain, or other concerning symptoms. They have been instructed to report to the emergency room immediately for any chest pain or shortness of breath. Activity Precautions: WBAT on RLE. Work on obtaining range of motion as discussed in the discharge instructions. DVT prophylaxis: Aspirin . Wound Care: Keep a dry dressing on the knee for 7-10 days, if no drainage ok to keep incision open to air. If there is drainage call the office Follow-up visit with Mal Geiger MD 4 weeks post-op. Signed: SALEEM MCCOY 01/09/2021 12:54 PM [facility] 01-01-2021 Hospital Discharge instructions Edgar Sullivan RN - 01/01/2021 IF YOU USE A CPAP MACHINE OR RESCUE INHALER AT HOME PLEASE BRING THESE ITEMS WITH YOU THE DAY OF SURGERY. MEDICATION INSTRUCTIONS PRIOR TO SURGERY PLEASE BRING PROVIDED LIST BACK WITH YOU THE DAY OF SURGERY WITH DATE/TIME LAST DOSE OF MEDICATIONS TAKEN. HOLD D3 FOR 24 HOURS PRIOR TO SURGERY HOLD ALL OTHER VITAMIN SUPPLEMENTS FOR 5 DAYS PRIOR TO SURGERY LAST DOSE WILL BE HOLD IBUPROFEN FOR 24 HOURS PRIOR TO SURGERY MAY TAKE TYLENOL UP UNTIL AM OF SURGERY IF NEEDED FOR PAIN. During pre-admission testing appointment, patient instructed on the following To arrive 2 hours prior to scheduled surgery Upon arrival, stop in registration just past the main entrance and provide them with a photo id and a medical card if they have one After registration, come to the same day surgery department, stopping at the main desk They need to have made arrangements for a ride home following surgery and a phone number will need to be provided before going back to the operating room. If public transportation will be used after surgery, they are made aware that a responsible adult needs to accompany them. They need to make arrangements to have someone with them when they get home from surgery. Leave all jewelry, contacts and valuables at home Wear loose comfortable clothing to go home in Bring in the medication list provided for them and write in the date/time last dose was taken No food (including candy, gum and mints) the day of surgery They may have clear liquids ( water, black coffee/no liquid or powder creamer, clear tea, clear fruit juices/no pulp and carbonated beverages) up until 2 hours prior to surgery Do not drink alcohol, use recreational drugs or smoke/use nicotine products 24 hours prior to surgery. Encouraged to write down any questions they may have for the surgeon, anesthesiologist or any member of the surgical team, and to bring list of questions in with them To not shave the surgical site and to follow instructions provided on showering with the CHG solution During the pre-admission testing appointment, this nurse reviewed and provided patient with The taking care of yourself after surgery paper Billing information for anesthesia patients Preparing for your surgical procedure pamphlet After visit Summary with medication list and medication instructions The CHG solution and shower card with instruction. Pt encouraged to follow instructions on card Prior to end of PAT appointment, pt acknowledged understanding of information and instructions provided in preparation of upcoming surgery. The following attachments cannot be sent through Care Everywhere.Hip Replacement: Total: General Info (Ecuadorean)Hip Replacement: Total or Partial: Pre-op (Ecuadorean)Hip Replacement (Anterior): Post-op (Ecuadorean)Spinal Anesthesia: General Info (Ecuadorean)documented in this encounter [facility] Work Phone: Evaluation note No assessment inform ation available [facility] Work Phone: Evaluation note Diagnosis Breast cancer screening by mammogram- Primary [facility] Diagnosis Status post hip replacement Hip joint replacement by other means [facility] Diagnosis Routine general medical examination at health care facility- Primary Routine general medical examination at a health care facility Insomnia, unspecified type Screening for lipid disorders Screening for diabetes mellitus Elevated blood pressure reading without diagnosis of hypertension documented in this encounter [facility]* Diagnosis Neck pain on left side- Primary Status post right hip replacement Primary osteoarthritis of right hip documented in this encounter [facility]* Diagnosis Anxiety- Primary Anxiety state, unspecified Insomnia, unspecified type Breast cancer screening by mammogram documented in this encounter [facility]* Diagnosis Routine general medical examination at health care facility- Primary Routine general medical examination at a health care facility Insomnia, unspecified type Screening for lipid disorders Screening for diabetes mellitus Elevated blood pressure reading without diagnosis of hypertension Anxiety- Primary Anxiety state, unspecified Insomnia, unspecified type Breast cancer screening by mammogram Neck pain on left side- Primary DDD (degenerative disc disease), cervical Degeneration of cervical intervertebral disc Cervical spondylosis Cervical spondylosis without myelopathy Spondylolisthesis of cervical region documented in this encounter [facility]* Diagnosis Diarrhea of presumed infectious origin- Primary Diverticular disease of colon Diverticulosis of colon (without mention of hemorrhage) Functional diarrhea Infectious gastroenteritis and colitis, unspecified 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 Sepsis, unspecified organism (HCC) Diarrhea, unspecified [facility] Diagnosis Functional diarrhea- Primary Other specified intestinal malabsorption [facility]* Diagnosis Status post hip replacement Hip joint replacement by other means documented in this encounter [facility]* Diagnosis Routine general medical examination at health care facility- Primary Routine general medical examination at a [facility] Insomnia, unspecified type Screening for lipid disorders Screening for diabetes mellitus Elevated blood pressure reading without diagnosis of hypertension Anxiety- Primary Anxiety state, unspecified Insomnia, unspecified type Breast cancer screening by mammogram Neck pain Cervicalgia DDD (degenerative disc disease), cervical Degeneration of cervical intervertebral disc Cervical spondylosis Cervical spondylosis without myelopathy Spondylolisthesis of cervical region [facility]* Diagnosis Routine general medical examination at [facility]- Primary Routine general medical examination at a [facility] Insomnia, unspecified type Screening for lipid disorders Screening for diabetes mellitus Elevated blood pressure reading without diagnosis of hypertension Anxiety- Primary Anxiety state, unspecified Insomnia, unspecified type Breast cancer screening by mammogram Insomnia, unspecified type Anxiety Anxiety state, unspecified documented in this encounter [facility]* Diagnosis Routine general medical examination at health care facility- Primary Routine general medical examination at a [facility] Insomnia, unspecified type Screening for lipid disorders Screening for diabetes mellitus Elevated blood pressure reading without diagnosis of hypertension Anxiety- Primary Anxiety state, unspecified Insomnia, unspecified type Breast cancer screening by mammogram Sudden idiopathic hearing loss, right ear Other abnormal auditory perceptions, right ear documented in this encounter [facility]* Diagnosis Routine general medical examination at [facility]- Primary Routine general medical examination at a [facility] Insomnia, unspecified type Screening for lipid disorders Screening for diabetes mellitus Elevated blood pressure reading without diagnosis of hypertension Anxiety- Primary Anxiety state, unspecified Insomnia, unspecified type Breast cancer screening by mammogram Brain aneurysm (HHS/HCC) Cerebral aneurysm, nonruptured [facility] Consultation (Routine) - Closed Specialty Diagnoses / Procedures Referred By Contac t Referred To Contact Orthopedic Surgery: Spine Surgery / Orthopedic Surgery Diagnoses Neck pain on left side Procedures [place] OFFICE/OUTPATIENT [facility] HIGH MDM 60 MINUTES Sofi Luna FARM MARKETER - ARCHIVES TECHNICIAN [address] [facility] [address] [place] [address] [facility] Orth/Spine [address] [place] [address] Referral ID Status Reason Start Date Expiration Date V isits Requested Visits Authorized [id number] Closed Specialty Services Required 05/21/2024 05/21/2025 1 1 [facility] Consultation (Routine) - Pending Review Specialty Diagnoses / Procedures Referred By Contchelita t Referred To Contact Gastroenterology Diagnoses Functional diarrhea Other specified intestinal malabsorption Procedures [place] OFFICE/OUTPATIENT [facility] 60-74 MINUTES Damon Logan DO [address] [place] [id number] Cb Richards MD [address] [place] [address] [address] [place] [address] Referral ID Status Reason Start Date Expiration Date Visits Requested Visits Authorized [id number] Pending Review Specialty Services Required 09/26/2022 09/26/2023 1 1 [facility] Imaging (Routine) - Closed Specialty Diagnoses / Procedures Referred By Contac t Referred To Contact Radiology Diagnoses Neck pain DDD (degenerative disc disease), cervical Cervical spondylosis Spondylolisthesis of cervical region Procedures MR cervical spine wo contrast Edgar Mcnulty, FARM MARKETER - ARCHIVES TECHNICIAN [address] [facility] [address] [place] [address] Phone: tel: fax: [facility] MRI [address] [place] [address] Phone: tel: Referral ID Status Reason Start Date Expiration Date Visits Re quested Visits Authorized [id number] Closed 08/12/2024 08/12/2025 1 1 [facility] for visit Narrative* Imaging (Routine) - Closed Specialty Diagnoses / Procedures Referred By Contac t Referred To Contact Radiology Diagnoses Sudden idiopathic hearing loss, right ear Other abnormal auditory perceptions, right ear Procedures MR brain w and wo contrast Nika Crawford, DO [address] [place] [id number] Phone: tel: fax: [facility] MR Imaging [address] [facility] [address] [place] [address] Phone: tel: fax: Referral ID Status Reason Start Date Expiration Date Visits Re quested Visits Authorized [id number] Closed 04/07/2025 04/07/2026 1 1 [facility] for visit Narrative* Imaging (Routine) - Closed Specialty Diagnoses / Procedures Referred By Contac t Referred To Contact Radiology Diagnoses Brain aneurysm (HHS/HCC) Procedures CTA head angio w and wo IV contrast Shawna Kenney, DO [address] [facility] [address] [place] [address] Phone: tel: fax: Referral ID Status Reason Start Date Expiration Date Visits Re quested Visits Authorized [id number] Closed 05/10/2025 05/10/2026 1 1 [facility] Advance Directives No Advanced Directives Records FoundDocuments on File Type Date Recorded Patient Search Marketing Coordinator Expl anation ACP-Advance Directive ACP-[employer] Consultant Sales Latest Code Status on File Code Status Date Activated Date Inactivated Comments Full Code 09/09/2016 6:48 AM 09/09/2016 11:23 AM Latest Code Status on File Code Status Date Activated Date Inactivated Comments Full Code 01/08/2021 4:32 PM 01/09/2021 2:06 PM Full Code 01/08/2021 8:12 AM 01/08/2021 3:37 PM Full Code 09/09/2016 6:48 AM 09/09/2016 11:23 AM Summary Purpose Family History No Family History Records Found Relationship Condition Age at Onset Recorded Date/T joslyn mother Malignant neoplasm of breast Unknown Chief Complaint and Reason for Visit Chief Complaint SCREENING Chief Complaint SCREEN Additional Source Comments Source Comments (unrecognize d section and content) In the event this informatio n is protected by the Federal Confidentiality of Alcohol and Drug Abuse Patient Records regulations: The Federal rules restrict any use of the information to criminally investigate or prosecute any alcohol or drug abuse patient.[facility] Care Teams (unrecognized sec tion and content) Clinical Research Associate Relationship Specialty Start Date End Date Damon Logan DO [facility] [place] [address] PCP - General Family Medicine 04/03/15 Clinical Research Associate Relationship Specialty Start Date End Date Damon Logan DO [address] [place] [address] PCP - General 04/03/15 Team Status: Active Member Role Status Dates Dr. Damon Logan DO Family Provider Active Dr. Damon Logan DO Primary Care Provider Active Team Status: Inactive Member Role Status Dates Dr. Damon Logan DO Primary Care Pr ovider, Attending Provider, Referring Provider Active Clinical Research Associate Relationship Specialty Start Date End Date Damon Logan DO [address] [place] [address] PCP - General 04/03/15 Clinical Research Associate Relationship Specialty Start Date End Date Damon Logan DO [address] [place] [address] PCP - General 04/03/15 Clinical Research Associate Relationship Specialty Start Date End Date Damon Logan DO [address] [place] [id number] PCP - General 04/03/15 Clinical Research Associate Relationship Specialty Start Date End Date DoreenDamon, DO [address] [place] [phone] PCP - General 04/03/15 Clinical Research Associate Relationship Specialty Start Date End Date Doreen Damon Casey, DO [address] [place] [phone] PCP - General 04/03/15 Clinical Research Associate Relationship Specialty Start Date End Date DoreenDamon, DO [address] [place] [phone] PCP - General 04/03/15 Clinical Research Associate Relationship Specialty Start Date End Date Doreen Damon Casey, DO [address] [place] [address] PCP - General 04/03/15 Clinical Research Associate Relationship Specialty Start Date End Date Doreen Damon Casey, DO [address] [place] [address] PCP - General 04/03/15 Clinical Research Associate Relationship Specialty Start Date End Date Doreen Damon Casey, DO [address] [place] [address] PCP - General 04/03/15 Clinical Research Associate Relationship Specialty Start Date End Date Doreen Damon Casey, DO [address] [place] [address] PCP - General 04/03/15 Clinical Research Associate Relationship Specialty Start Date End Date Doreen Damon Casey, DO [address] [place] [address] PCP - General 04/03/15 Clinical Research Associate Relationship Specialty Start Date End Date Damon Logan, DO [address] [place] [address] PCP - General 04/03/15 Clinical Research Associate Relationship Specialty Start Date End Date HumbertoariannaDamon arenas, DO [address] [place] [address] PCP - General 04/03/15 Clinical Research Associate Relationship Specialty Start Date End Date Shawna Kenney DO [address] [place] [address] Road [address] [place] [address] PCP - General Internal Medicine 05/17/25 Clinical Research Associate Relationship Specialty Start Date End Date Shawna Kenney DO [address] [place], [place] [id number] PCP - General Internal Medicine 05/17/25 INFORMATION SOURCE (unrecogn ized section and content) DATE CREATED AUTHOR 07/07/2021 [facility] DATE CREATED AUTHOR AUTHOR'S ORGANIZ ATION 07/09/2021 [facility] DATE CREATED AUTHOR AUTHOR'S ORGANIZ ATION 09/10/2024 [facility] DATE CREATED AUTHOR AUTHOR'S ORGANIZ ATION 06/16/2025 [facility] DATE CREATED AUTHOR AUTHOR'S ORGANIZ ATION 06/17/[address] [facility] DATE CREATED AUTHOR AUTHOR'S ORGANIZ ATION 06/20/2025 [facility] Goals (unrecognized section and content) Goals may be documented in a n alternate sectionGoals may be documented in an alternate section Reason for Visit (unrecogniz ed section and content) Reason Onset Date Comments Antibiotics for Dental Cleaning 09/26/2022 Reason Comments Medicare Annual Wellness Visit Maureen t Reason Comments New Patient R JESSICA DOS 01/09/2021 Reason Onset Date Comments Hypertension 06/01/2024 Reason Comments Hypertension High readings Flu Vaccine Patient has declined to receive influenza vaccine in the office. Reason Comments New Patient Specialty Diagnoses / Procedures Referred By Jose G sanon Referred To Contact Orthopedic Surgery: Spine Surgery / Orthopedic Surgery Diagnoses Neck pain on left side Procedures [place] OFFICE/OUTPATIENT [place] HIGH MDM 60 MINUTES Sofi Luna, FARM MARKETER - ARCHIVES TECHNICIAN [address] [facility] [address] [place] [address] Phone: tel: fax: [facility] [address] [place] [address] Phone: tel: fax: Referral ID Status Reason Start Date Expiration Date V isits Requested Visits Authorized [id number] Closed Specialty Services Required 05/21/2024 05/21/2025 1 1 Reason Onset Date Comments Orders 07/07/2024 Other 07/07/2024 Billing refund Reason Comments thinks IBS Diarrhea Reason Onset Date Comments Results 09/23/2022 Reason Onset Date Comments Med Refill 02/21/2025 Reason Onset Date Comments Referral 05/18/2025 Reason Onset Date Comments Other 06/03/2025 Concerns and Que stions FOR RECORDS PERTAINING TO PATIENTS WHO ARE OR HAVE BEEN ENROLLED IN A CHEMICAL DEPENDENCY/SUBSTANCEABUSE PROGRAM, SOME INFORMATION MAY BE OMITTED. This clinical summary was aggregated from multiple sources. Caution should be exercised in using it in the provision of clinical care. This summary normalizes information from multiple sources, and as a consequence, information in this document may materially change the coding, format and clinical context of patient data. In addition, data may be omitted in some cases. CLINICAL DECISIONS SHOULD BE BASED ON THE PRIMARY CLINICAL RECORDS. [email or web address] provides no warranty or guarantee of the accuracy or completeness of information in this document.
== END | disposition home or self-care (01) ==
PROVIDERS: PCP Family Medicine; Referring Provider Family Medicine; Visit Provider Family Medicine
DX: Z12.31 Encounter for screening mammogram for malignant neoplasm of breast (principal)
CPT/HCPCS: 77063; 77067